=== PATIENT | female | born 1940 | race Caucasian/White ===

== ENCOUNTER 2016-11-19 01:51 | Inpatient (IN) | payer MEDICARE, OTHER ==
[2016-11-19] MEDS ORDERED: Fentanyl 100 MCG/2 ML VIAL ONE (02:03)
[2016-11-19 02:52] LABS: #Basophils 0.1 thou/uL (0.0-0.2); #Eosinphils 0.1 thou/uL (0.0-0.7); #Lymphocytes 2.4 thou/uL (1.20-3.40); #Monocytes 1.1 thou/uL (0.11-0.59); #Neutrophils 8.6 thou/uL (1.40-6.50); %Basophils 1.1 % (0.0-1.0); %Eosinophils 0.8 % (0.0-10.0); %Lymphocytes 19.5 % (21.0-51.0); %Monocytes 9.1 % (0.0-10.0); Hematocrit 37.2 % (36.0-47.0); Mean Platelet Volume 10.1 fL (7.4-10.4); Red Blood Cell (RBC) Count 4.07 mill/uL (4.20-5.40); White Blood Cell (WBC) Count 12.3 thou/uL (4.8-10.8)
[2016-11-19 03:06] LABS: ALT (SGPT) 25 U/L (0-55); AST (SGOT) 34 U/L (5-34); Alkaline Phosphatase 115 U/L (40-150); Anion Gap 13 mmol/L (10-20); BUN (Urea Nitrogen) 13 mg/dL (9.8-20.1); Bilirubin, Total 0.6 mg/dL (0.2-1.2); Calc. Creatinine Clearance 0 mL/min (70-130); Calcium 9.1 mg/dL (7.8-10.44); Carbon Dioxide 26 mmol/L (23-31); Chloride 107 mmol/L (98-107); Estimated GFR-MDRD 70; Globulin 3.2 g/dL (2.4-3.5); Protein, Total 6.9 g/dL (5.8-8.1)
[2016-11-19] MEDS ORDERED: Adacel (T-DAP) 0.5 ML VIAL ONE (03:22)
[2016-11-19] MEDS ORDERED: Lidocaine Viscous Sol 2% 15 ml UD Cup ONE (03:47)
[2016-11-19 03:50] LABS: Bilirubin Negative (Negative); Blood, Urine Negative (Negative); Glucose, Urine (Dipstick) Negative (Negative); Ketone, Urine Negative (Negative); Nitrite Negative (Negative); Protein, Urine (Dipstick) Negative (Neg-Trace); Urobilinogen 0.2 mg/dL (0.2-1.0)
[2016-11-19 03:51] LABS: Bacteria/HPF None Seen HPF (None Seen); RBC/HPF None Seen HPF (0-3); Squamous Epithelial 0-3 HPF (0-3); WBC/HPF None Seen HPF (0-3)
[2016-11-19] MEDS ORDERED: Morphine Sulfate 2 MG/ML SYRINGE SLOW IVP PRN ×2 (04:48→10:09)
--- NOTE | 2016-11-19 05:09 | ERRECORD ---
[facility] (02:04 [facility]) MERGE: Ambulance ThuNov 19, 2016 01:45. HPI FALL (02:04 MPUR) CHIEF COMPLAINT: Patient presents for evaluation of fall, from standing. HISTORIAN: History provided by patient, 76 y.o. female who lost her balance trying to grab something that was falling, landing on her rt hip. SHe had immediate pain in the left groin region with decreased ability to move the left hip due to the groin pain. LOCATION: Symptoms are localized, most severe to left pelvis lateral to the left of the symphysis pubis., Radiation to the groin. QUALITY: Pain is sharp in nature, described as shooting. TIME COURSE: Sudden onset of symptoms, gradually worsening over the evening. SEVERITY: Maximum severity of symptoms moderate, Currently symptoms are severe. EXACERBATED BY: Patient's condition exacerbated by movement. RELIEVED BY: Patient's condition relieved by nothing, Patient's condition relieved by nothing because patient has not tried anything for relief. RISK FACTORS: No risk factors for spinal injury, No risk factors for intracranial bleed. ROS (02:39 MPUR) CONSTITUTIONAL: Historian denies chills, Historian denies fever, Historian denies malaise, Historian denies weakness. EYES: Historian denies eye redness, Historian denies eye discharge. ENT: Historian denies epistaxis, Historian denies otalgia, Historian denies rhinorrhea, Historian denies sore throat. CARDIOVASCULAR: Historian denies chest pain. RESPIRATORY: Historian denies cough, Historian denies shortness of breath. GI: Historian denies abdominal pain, Historian denies diarrhea, Historian denies nausea, Historian denies vomiting. GENITOURINARY FEMALE: Historian denies dysuria, Historian denies frequency, Historian denies hematuria, Historian denies urgency, Historian denies vaginal bleeding, Historian denies vaginal discharge. MUSCULOSKELETAL: See HPI. Historian denies neck pain. SKIN: Historian denies cellulitis, Historian denies rash. NEUROLOGIC: Historian denies dizziness, Historian denies headache. ENDOCRINE: Historian denies polydipsia, Historian denies polyuria. PAST MEDICAL HISTORY (02:08 [facility]) &a-1R&a+25V*p+0X*[id number]*c202B*c15G*c2P*p-0X&a-25V&a+1R Name: Dorene Hamilton : 1940 F76 MedRec: [id number] AcctNum: [id number] Prepared: ThuNov 19, 2016 05:06 by Interface Page 1 of 4 pMD [facility] EMERGENCY RECORD MEDICAL HISTORY: Past medical history includes cardiac history, coronary artery disease, arrhythmia, premature ventricular contractions, Past medical history includes gastrointestinal disease, gastroesophageal reflux disease, Past medical history includes genitourinary history, urinary tract infection, Past medical history includes musculoskeletal disorder, osteoporosis. FEMALE SURGICAL HISTORY: CRACKED STERNUM, Surgical history of appendectomy. PSYCHIATRIC HISTORY: Psychiatric history includes, anxiety. SOCIAL HISTORY: Patient denies alcohol use, Patient denies drug use, Patient is a former tobacco user, smoked cigarettes, Patient quit smoking more than 10 years ago. KNOWN ALLERGIES No Known Drug Allergies poison gulshan extract (Unconfirmed) CURRENT MEDICATIONS Evista: TABLET : Strength - 60 mg : ORAL Patient Dose: 1 tab(s) Oral once a day (in the morning). (: [facility]) Zoloft: TABLET : Strength - 50 mg : ORAL Patient Dose: 1 tab(s) Oral once a day (in the morning). (: [facility]) Aspir-81: TABLET, DELAYED RELEASE (ENTERIC COATED) : Strength - 81 mg : ORAL Patient Dose: 1 tab(s) Oral once a day (in the morning). (: [facility]) meTOPROLOL succinate: TABLET, EXTENDED RELEASE 24 HR : Strength - 25 mg : ORAL Patient Dose: 25 mg Oral 2 times a day. (: [facility]) Vitamin D3: TABLET : Strength - 1,000 unit : ORAL Patient Dose: 1200 units Oral once a day. (: [facility]) Super B Complex: TABLET : ORAL Patient Dose: 1 tab(s) Oral once a day. (: [facility]) calcium carbonate-vitamin D3: CAPSULE : Strength - 600 mg calcium (1,500 mg)-1,000 unit : ORAL Patient Dose: 1800 mg Oral once a day. (: [facility]) magnesium: TABLET : Strength - 250 mg : ORAL Patient Dose: 250 mg Oral once a day. (02: [facility]) vitamin E: CAPSULE : Strength - 100 unit : ORAL Patient Dose: 100 units Oral once a day. (02:04 [facility]) &a-1R&a+25V*p+0X*[id number]*c202B*c15G*c2P*p-0X&a-25V&a+1R Name: Dorene Hamilton : 1940 F76 MedRec: [id number] AcctNum: [id number] Prepared: ThuNov 19, 2016 05:06 by Interface Page 2 of 4 pMD [facility] EMERGENCY RECORD VITAL SIGNS VITAL SIGNS: BP: 173/78, Pulse: 94, Resp: 18, Temp: 99.9 (Oral), Pain: 9 (Constant), O2 sat: 93 on Room Air, Time: 11/19/2016 01:53. (01:53 [facility]) BP: 141/66, Pulse: 80, Resp: 18, O2 sat: 94 on Room Air, Time: 11/19/2016 03:15. (03:15 [facility]) BP: 125/72, Pulse: 77, Resp: 18, O2 sat: 93 on Room Air, Time: 11/19/2016 04:15. (04:15 [facility]) Temp: 98.7 (Oral), Pain: 0, Time: 11/19/2016 04:15. (04:15 [facility]) BP: 133/65, Pulse: 73, Resp: 18, Pain: 0, O2 sat: 93 on Room Air, Time: 11/19/2016 04:30. (04:30 [facility]) PHYSICAL EXAM CONSTITUTIONAL: Vital signs reviewed, Patient alert and oriented to person, place and time. (02:32 MPUR) HEAD: Head exam included findings of head atraumatic, normocephalic. (02:32 MPUR) EYES: Pupils equally round and reactive to light, Extraocular muscles intact, Conjunctiva normal. (02:32 MPUR) ENT: Ear exam normal, external ear normal, no drainage, no bleeding, Nose exam normal, no bleeding from nares. (02:32 MPUR) NECK: Neck exam included findings of normal range of motion, Trachea midline, no jugular venous distention. (02:32 MPUR) RESPIRATORY CHEST: Respiratory exam included findings of no respiratory distress, Breath sounds clear, No wheezing, No rales, No rhonchi. (02:32 MPUR) CARDIOVASCULAR: Cardiovascular exam included findings of heart rate regular rate and rhythm, Heart sounds normal, normal S1, normal S2, no murmurs. Occasional ectopic beat. (02:32 MPUR) ABDOMEN FEMALE: Abdominal exam included findings of abdomen tender, to the suprapubic region, moderate intensity, Bowel sounds normal, Liver normal, Spleen normal, Distension present, Mass palpated. (02:35 MPUR) SKIN: Skin exam included findings of skin warm, dry. Abrasion rt elbow. (02:32 MPUR) RADIOLOGYINTERPRETATION (03:45 MPUR) LOWER EXTREMITIES: Films of the pelvis show, Other findings: displaced fx of the symphysis pubis, Hip films negative, on the left, no fracture, CT pf pelvis confirms distortion of the symphysis pubis. MEDICATION ADMINISTRATION SUMMARY Drug Name: Adacel(Tdap Adolesn/Adult)(PF), Dose Ordered: 0.5 mL, Route: Intramuscular, Status: Given, Time: 03:40 11/19/2016, Drug Name: fentaNYL (PF) injection, Dose Ordered: 50 mcg, Route: IV Push, Status: Given, Time: 02:15 11/19/2016, Detailed record available in Medication Service section. &a-1R&a+25V*p+0X*[id number]*c202B*c15G*c2P*p-0X&a-25V&a+1R Name: Dorene Hamilton : 1940 F76 MedRec: [id number] AcctNum: [id number] Prepared: ThuNov 19, 2016 05:06 by Interface Page 3 of 4 pMD [facility] EMERGENCY RECORD DOCTOR NOTES RE-EVALUATION: Routine re-evaluation, after administration of analgesics, The patient's condition has improved, lying flat is almost pain free post meds. (02:48 MPUR) D/W: Discussed this case with Dr. Clinton, the primary care physician, Discussed case, treatment plan. (03:39 MPUR) PATIENT PLAN: The patient will be admitted to the hospital, Initial physician orders were written for patient as discussed with admitting physician. (03:49 MPUR) PROBLEM LIST No recorded problems DIAGNOSIS (03:42 MPUR) FINAL: PRIMARY: Pelvic fracture, ADDITIONAL: Constipation. PRESCRIPTION No recorded prescriptions DISPOSITION PATIENT: Disposition Type: Discharge, Disposition: *Discharge Home. (03:42 MPUR) Disposition Type: Admit, Disposition: [facility]. (03:42 MPUR) Patient left the department. (04:58 [facility]) Fabian: LKLARRY=FELIPE Easton, Kandace MPUR=MD Jaja, Nate &a-1R&a+25V*p+0X*t4255I*c202B*c15G*c2P*p-0X&a-25V&a+1R Name: Dorene Hamilton Eugenio : 1940 F76 MedRec: [id number] AcctNum: [id number] Prepared: ThuNov 19, 2016 05:06 by Interface Page 4 of 4 pMD MTDD
--- NOTE | 2016-11-19 05:15 | PICIS ---
[facility] EMERGENCY RECORD ADMIN (02:04 [facility]) MERGE: Ambulance ThuNov 19, 2016 01:45. TRIAGE (ThuNov 19, 2016 01:55 [facility]) TRIAGE NOTES: FELL FROM STANDING AT 18:00 LAST NIGHT. LANDED ON RIGHT SIDE. ABRASION TO RIGHT ELBOW. C/O SEVERE PAIN TO INNER LEFT THIGH RADIATING TO GROIN. PAIN WITH MOVEMENT. UNABLE TO WALK. (ThuNov 19, 2016 01:55 [facility]) PATIENT: NAME: Dorene Hamilton, AGE: 76, GENDER: female, : Thu1940, TIME OF GREET: ThuNov 19, 2016 01:52, PREFERRED LANGUAGE: [place], ETHNICITY: Not or , ECODE BILLING MAP: [facility], SSN: [id number], Zip Code: [address], PHONE: , , , PERSON ID: [id number], PCP: Jaspreet CARTER C. HENRY. (ThuNov 19, 2016 01:55 [facility]) KG WEIGHT: 49 (est.). (03:54 [facility]) COMPLAINT: FALL. (ThuNov 19, 2016 01:55 [facility]) ADMISSION: URGENCY: 4 Non Urgent, ADMISSION SOURCE: Home, TRANSPORT: CAR, BED: TRIAGE. (ThuNov 19, 2016 01:55 [facility]) ASSESSMENT: Symptoms began 11/18/2016 18:00. (02:08 [facility]) PAIN: Patient complains of pain described as, on a scale 0-10 patient rates pain as 9, Location LEFT INNER THIGH & GROIN, Pain is intermittent, Onset was 11/18/2016 18:00, Notes: PAIN ONLY WITH MOVEMENT. (02:08 [facility]) SIRS SCORING: Heart Rate 55-109 (0), Temp range 96.8-101.1 (0), respiratory rate 12-24 (0), Mental Status altered: no (0). (02:08 [facility]) IMMUNIZATIONS: Flu vaccine up to date, Tetanus immunization up to date, Date of immunization: 11/19/2016. (02:08 [facility]) TRIAGE SCREENING: Patient denies suicidal ideation, Patient denies presence of domestic violence. (02:08 [facility]) TREATMENTS IN PROGRESS: Treatments given Prehospital: NONE. (02:08 [facility]) PROVIDERS: TRIAGE NURSE: Kandace Easton RN. (ThuNov 19, 2016 01:55 [facility]) VITAL SIGNS: BP 173/78, Pulse 94, Resp 18, Temp 99.9, (Oral), Pain 9, (Constant), O2 Sat 93, on Room Air, Time 11/19/2016 01:53. (01:53 [facility]) PREVIOUS VISIT ALLERGIES: No Known Drug Allergies. (ThuNov 19, 2016 01:55 [facility]) No Known Drug Allergies. (02:08 [facility]) KNOWN ALLERGIES No Known Drug Allergies poison gulshan extract (Unconfirmed) CURRENT MEDICATIONS Evista: TABLET : Strength - 60 mg : ORAL &a-1R&a+25V*p+0X*z6182V*c202B*c15G*c2P*p-0X&a-25V&a+1R Name: Dorene Hamilton : 1940 F76 MedRec: [id number] AcctNum: [id number] Prepared: ThuNov 19, 2016 05:12 by Interface Page 1 of 11 pMD [facility] EMERGENCY RECORD Patient Dose: 1 tab(s) Oral once a day (in the morning). (:56 [facility]) Zoloft: TABLET : Strength - 50 mg : ORAL Patient Dose: 1 tab(s) Oral once a day (in the morning). (01:56 [facility]) Aspir-81: TABLET, DELAYED RELEASE (ENTERIC COATED) : Strength - 81 mg : ORAL Patient Dose: 1 tab(s) Oral once a day (in the morning). (:56 [facility]) meTOPROLOL succinate: TABLET, EXTENDED RELEASE 24 HR : Strength - 25 mg : ORAL Patient Dose: 25 mg Oral 2 times a day. (:59 [facility]) Vitamin D3: TABLET : Strength - 1,000 unit : ORAL Patient Dose: 1200 units Oral once a day. (: [facility]) Super B Complex: TABLET : ORAL Patient Dose: 1 tab(s) Oral once a day. (02: [facility]) calcium carbonate-vitamin D3: CAPSULE : Strength - 600 mg calcium (1,500 mg)-1,000 unit : ORAL Patient Dose: 1800 mg Oral once a day. (02:02 [facility]) magnesium: TABLET : Strength - 250 mg : ORAL Patient Dose: 250 mg Oral once a day. (02:03 [facility]) vitamin E: CAPSULE : Strength - 100 unit : ORAL Patient Dose: 100 units Oral once a day. (02:04 [facility]) VITAL SIGNS VITAL SIGNS: BP: 173/78, Pulse: 94, Resp: 18, Temp: 99.9 (Oral), Pain: 9 (Constant), O2 sat: 93 on Room Air, Time: 11/19/2016 01:53. (01:53 [facility]) BP: 141/66, Pulse: 80, Resp: 18, O2 sat: 94 on Room Air, Time: 11/19/2016 03:15. (03:15 [facility]) BP: 125/72, Pulse: 77, Resp: 18, O2 sat: 93 on Room Air, Time: 11/19/2016 04:15. (04:15 [facility]) Temp: 98.7 (Oral), Pain: 0, Time: 11/19/2016 04:15. (04:15 [facility]) BP: 133/65, Pulse: 73, Resp: 18, Pain: 0, O2 sat: 93 on Room Air, Time: 11/19/2016 04:30. (04:30 [facility]) NURSING ASSESSMENT: EXTREMITY LOWER (02:15 [facility]) CONSTITUTIONAL: Complex assessment performed, Patient arrives, via stretcher, via Emergency Medical Services, Unsteady gait, Lift to cart, Inability to ambulate, History obtained from patient, Patient cooperative, Patient alert, Oriented to person, place and time, Skin warm, Skin dry, Skin normal in color, Mucous membranes pink, Mucous membranes moist, Patient is well-groomed, Patient complains of FALL. PAIN: to the left upper leg, Pain radiates, &a-1R&a+25V*p+0X*f0469H*c202B*c15G*c2P*p-0X&a-25V&a+1R Name: Dorene Hamilton : 1940 F76 MedRec: [id number] AcctNum: [id number] Prepared: ThuNov 19, 2016 05:12 by Interface Page 2 of 11 pMD [facility] EMERGENCY RECORD UP TO LEFT GROIN, Onset of pain 11/18/2016 18:00, constant, on a scale 0-10 patient rates pain as 9, PT REPORTS NO PAIN AT REST. SEVERE PAIN WITH EVEN THE SMALLEST MOVEMENT, Pain exacerbated by, MOVEMENT. LEFT LOWER EXTREMITY: Left lower extremity assessment findings include capillary refill less than 2 seconds, Skin color normal, Skin temperature warm, Distal sensation intact, Muscle tone normal, no edema present, posterior tibia pulse is +3. RIGHT LOWER EXTREMITY: Right lower extremity assessment findings include capillary refill less than 2 seconds, Skin color normal, Skin temperature warm, Distal sensation intact, Muscle tone normal, posterior tibia pulse is +3, dorsalis pedis pulse is +3. SAFETY: Side rails up, Cart/Stretcher in lowest position, Family at bedside, Call light within reach, Hospital ID band on. NURSING ASSESSMENT: FALL RISK (04:00 [facility]) FALL RISK: Fall risk assessment findings include: History of falls (5), Total score 5. NURSING ASSESSMENT: SKIN (02:15 [facility]) SKIN: Skin assessment findings include skin warm, Skin dry, Skin normal in color, Inspection findings include abrasion, to RIGHT ELBOW, SKIN TEAR, Inspection findings include: No pressure ulcer to the shoulder, Inspection findings include no pressure ulcer to the elbow, Inspection findings include no pressure ulcers to the hip, Inspection findings include no pressure ulcer to the sacrum, Inspection findings include no pressure ulcer to the heel, Inspection findings include no pressure ulcer, Inspection findings include no pressure ulcer. NURSING PROCEDURE: ADMISSION (04:40 [facility]) ADMISSION: Patient admitted to a medical-surgical unit, room number 147, Report called toCHUCHO RN, Provided opportunity to answer questions, Admission orders received and completed, Bed assigned at 11/19/2016 04:00, Report called at 11/19/2016 04:35, Patient Admited at. 11/19/2016 04:40, Acuity level urgent, Transported via cart/stretcher, Accompanied by registered nurse, Transported with disposable blood pressure cuff, Transported with saline lock, Summary of Care printed. BELONGINGS: Belongings and valuables with patient upon arrival to the Emergency Department include:, Belongings and valuables with patient at time of admission include:, Belongings remain with patient, Valuables remain with patient. NURSING PROCEDURE: BEDSIDE SIRS TESTING (04:16 [facility]) SCORES: Heart Rate 55-109 (0), Temp range 96.8-101.1 (0), respiratory rate 12-24 (0), Latest WBC 3-14.9 (0), Mental Status altered: no (0), Infection or Suspected Infection: No. NURSING PROCEDURE: COMMUNICATIONS (03:30 [facility]) &a-1R&a+25V*p+0X*v4640P*c202B*c15G*c2P*p-0X&a-25V&a+1R Name: Dorene Hamilton : 1940 F76 MedRec: [id number] AcctNum: [id number] Prepared: ThuNov 19, 2016 05:12 by Interface Page 3 of 11 pMD [facility] EMERGENCY RECORD COMMUNICATIONS: Physician, contacted/paged at Dr. Carter, 0330, home, Reason for notification admission of patient, ERMD requested to speak with patient's PCP regarding possible admission. PCP contacted on first attempt. NURSING PROCEDURE: IV (02:10 [facility]) PATIENT IDENITIFIER: Patient actively involved in identification process, Patient's identity verified by patient stating name, Patient's identity verified by patient stating date. IV SITE 1: IV therapy indicated for medication administration, IV established, to the left forearm, using a 20 gauge catheter, in one attempt, IV site prepped with chloraprep, Saline lock established, Flushed with normal saline (mls): 10, Labs drawn at time of placement, labeled in the presence of the patient and sent to lab. FOLLOW-UP SITE 1: After procedure, sterile transparent dressing applied. SAFETY: Side rails up, Cart/Stretcher in lowest position, Family at bedside, Call light within reach, Hospital ID band on. NURSING PROCEDURE: NURSE NOTES (03:23 [facility]) NURSES NOTES: Notes: ERMD in with patient and family. NURSING PROCEDURE: TRANSPORT TO TESTS PATIENT IDENTIFIER: Patient actively involved in identification process, Patient's identity verified by patient stating name, Patient's identity verified by patient stating date. (02:53 [facility]) TRANSPORT TO TESTS: Transport indicated to facilitate diagnosis, Patient transported to x-ray, via cart, Accompanied by x-ray geotechnician. (02:17 [facility]) Patient transported to CT scan, via cart, Accompanied by x-ray geotechnician. (02:53 [facility]) FOLLOW-UP: After procedure, patient returned to emergency department. (02:40 [facility]) SAFETY: Side rails up, Cart/Stretcher in lowest position, Family at bedside, Call light within reach, Hospital ID band on. (02:53 [facility]) NURSING PROCEDURE: URINE COLLECTION (03:35 [facility]) URINE COLLECTION FEMALE: Simple johnson inserted, using a 16 fr pre-connected catheter, in one attempt, output amount (mL) 250, urine yellow in color, and clear, Johnson has been anchored to leg and labeled with date and time, Specimen labeled in the presence of the patient and sent to lab. NOTES: Patient tolerated procedure well. NURSING PROCEDURE: WOUND CARE (04:00 [facility]) PATIENT IDENTIFIER: Patient actively involved in identification process, Patient's identity verified by patient stating name, Patient's identity verified by patient stating date, Patient's &a-1R&a+25V*p+0X*r2579M*c202B*c15G*c2P*p-0X&a-25V&a+1R Name: Dorene Hamilton : 1940 F76 MedRec: [id number] AcctNum: [id number] Prepared: ThuNov 19, 2016 05:12 by Interface Page 4 of 11 D [facility] EMERGENCY RECORD identity verified by hospital ID axel, Patient's identity verified by family member. WOUND CARE: Wound care indicated for wound debridement and cleansing, Wound care indicated for preparing wound for repair, Wound care indicated to promote healing, Wound site: RIGHT ELBOW, Cause of wound: FALL, Wound cleansed with normal saline, by FELIPE GEORGE, Wound repaired with steri-strips, by FELIPE GEORGE, using 1 pack of steri-strips. FOLLOW-UP: After procedure, simple dressing applied, TEGADERM WITH PAD, After procedure, capillary refill less than 2 seconds, After procedure, distal circulation intact, After procedure, distal motor intact, After procedure, distal sensation intact, After procedure, distal pulses present. NOTES: Patient tolerated procedure well. ORDER DETAILS Order Name: CBC with Differential, Status: Active, Time: 02:44 11/19/2016, User: BRITT, - Ordered for: MD Wilkinson Marcus, - Entered by: MD Wilkinson Marcus - [facility] Nov 19, 2016 02:44, - Quantity: 1, Order Name: Comprehensive Metabolic Panel, Status: Active, Time: 02:44 11/19/2016, User: BRITT, - Ordered for: MD Wilkinson Marcus, - Entered by: MD Wilkinson Marcus - [facility] Nov 19, 2016 02:44, - Quantity: 1, Order Name: CT Abdomen Pelvis WO Con, Status: Active, Time: 02:45 11/19/2016, User: BRITT, - Ordered for: MD Wilkinson Marcus, - Entered by: MD Wilkinson Marcus - [facility] Nov 19, 2016 02:45, - Quantity: 1, Order Name: SALINE LOCK, Status: Done, Time: 02:22 11/19/2016, User: VALENTINE, - Ordered for: MD Wilkinson Marcus, - Entered by: FELIPE Mcfarlane, Cristel - [facility] Nov 19, 2016 02:22, - Quantity: 1, Order Name: Urinalysis with Microscopic, Status: Active, Time: 02:44 11/19/2016, User: BRITT, - Ordered for: MD Wilkinson Marcus, - Entered by: MD Wilkinson Marcus - [facility] Nov 19, 2016 02:44, - Quantity: 1, Order Name: XR Hip Lt 2-3 View STANDARD, Status: Active, Time: 02:00 11/19/2016, User: TORSTEN, - Ordered for: MD Wilkinson Marcus, - Entered by: FELIPE Easton, Kandace - [facility] Nov 19, 2016 02:00, - Quantity: 1, Order Name: XR Pelvis AP STANDARD, Status: Active, Time: 01:57 11/19/2016, User: TORSTEN, - Ordered for: MD Wilkinson Marcus, &a-1R&a+25V*p+0X*n8568A*c202B*c15G*c2P*p-0X&a-25V&a+1R Name: Dorene Hamilton : 1940 F76 MedRec: [id number] AcctNum: [id number] Prepared: ThuNov 19, 2016 05:12 by Interface Page 5 of 11 pMD [facility] EMERGENCY RECORD - Entered by: FELIPE Easton Lacey - ThuNov 19, 2016 01:57, - Quantity: 1. MEDICATION ADMINISTRATION SUMMARY Drug Name: Adacel(Tdap Adolesn/Adult)(PF), Dose Ordered: 0.5 mL, Route: Intramuscular, Status: Given, Time: 03:40 11/19/2016, Drug Name: fentaNYL (PF) injection, Dose Ordered: 50 mcg, Route: IV Push, Status: Given, Time: 02:15 11/19/2016, Detailed record available in Medication Service section. MEDICATION SERVICE Adacel(Tdap Adolesn/Adult)(PF): Order: Adacel(Tdap Adolesn/Adult)(PF) (diphth,pertuss(acell),tet vac/preservative free) - Dose: 0.5 mL : Intramuscular Schedule: Now Ordered by: Nate Wilkinson MD Entered by: Nate Wilkinson MD ThuNov 19, 2016 03:11 Documented as given by: Kandace Easton RN ThuNov 19, 2016 03:40 Patient, Medication, Dose, Route and Time verified prior to administration. IM immunization, Amount given: 0.5mL, Medication administered to right deltoid, novelty twister tender: Adacel, lot number: [id number], expiration: 10/02/2018, Patient appears Awake and alert- acceptable, Correct patient, time, route, dose and medication confirmed prior to administration, Patient advised of actions and side-effects prior to administration, Allergies confirmed and medications reviewed prior to administration. fentaNYL (PF) injection: Order: fentaNYL (PF) injection (fentanyl citrate/preservative free) - Dose: 50 mcg : IV Push Schedule: Now Ordered by: Nate Wilkinson MD Entered by: Nate Wilkinson MD ThuNov 19, 2016 02:19 , Acknowledged by: Cristel Mcfarlane RN ThuNov 19, 2016 02:20 Documented as given by: Cristel Mcfarlane RN ThuNov 19, 2016 02:15 Patient, Medication, Dose, Route and Time verified prior to administration. Amount given: 50 MCG, IV SITE #1 into left forearm, IV SITE #1 IVP, initial medication, Slowly, Catheter placement confirmed via flush prior to administration, IV site without signs or symptoms of infiltration during medication administration, No swelling during administration, No drainage during administration, IV flushed after administration, Correct patient, time, route, dose and medication confirmed prior to administration, Patient advised of actions and side-effects prior to administration, Allergies confirmed and medications reviewed prior to administration, Patient in position of comfort, Side rails up, Cart in lowest position, Family at bedside. HPI FALL (02:04 [facility]) &a-1R&a+25V*p+0X*m6844M*c202B*c15G*c2P*p-0X&a-25V&a+1R Name: Dorene Hamilton : 1940 F76 MedRec: [id number] AcctNum: [id number] Prepared: ThuNov 19, 2016 05:12 by Interface Page 6 of 11 pMD [facility] EMERGENCY RECORD CHIEF COMPLAINT: Patient presents for evaluation of fall, from standing. HISTORIAN: History provided by patient, 76 y.o. female who lost her balance trying to grab something that was falling, landing on her rt hip. SHe had immediate pain in the left groin region with decreased ability to move the left hip due to the groin pain. LOCATION: Symptoms are localized, most severe to left pelvis lateral to the left of the symphysis pubis., Radiation to the groin. QUALITY: Pain is sharp in nature, described as shooting. TIME COURSE: Sudden onset of symptoms, gradually worsening over the evening. SEVERITY: Maximum severity of symptoms moderate, Currently symptoms are severe. EXACERBATED BY: Patient's condition exacerbated by movement. RELIEVED BY: Patient's condition relieved by nothing, Patient's condition relieved by nothing because patient has not tried anything for relief. RISK FACTORS: No risk factors for spinal injury, No risk factors for intracranial bleed. ROS (02:39 [facility]) CONSTITUTIONAL: Historian denies chills, Historian denies fever, Historian denies malaise, Historian denies weakness. EYES: Historian denies eye redness, Historian denies eye discharge. ENT: Historian denies epistaxis, Historian denies otalgia, Historian denies rhinorrhea, Historian denies sore throat. CARDIOVASCULAR: Historian denies chest pain. RESPIRATORY: Historian denies cough, Historian denies shortness of breath. GI: Historian denies abdominal pain, Historian denies diarrhea, Historian denies nausea, Historian denies vomiting. GENITOURINARY FEMALE: Historian denies dysuria, Historian denies frequency, Historian denies hematuria, Historian denies urgency, Historian denies vaginal bleeding, Historian denies vaginal discharge. MUSCULOSKELETAL: See HPI. Historian denies neck pain. SKIN: Historian denies cellulitis, Historian denies rash. NEUROLOGIC: Historian denies dizziness, Historian denies headache. ENDOCRINE: Historian denies polydipsia, Historian denies polyuria. PAST MEDICAL HISTORY (02:08 [facility]) MEDICAL HISTORY: Past medical history includes cardiac history, coronary artery disease, arrhythmia, premature ventricular contractions, Past medical history includes gastrointestinal disease, gastroesophageal reflux disease, Past medical history includes &a-1R&a+25V*p+0X*f1416F*c202B*c15G*c2P*p-0X&a-25V&a+1R Name: Dorene Hamilton : 1940 F76 MedRec: [id number] AcctNum: [id number] Prepared: ThuNov 19, 2016 05:12 by Interface Page 7 of 11 pMD [facility] EMERGENCY RECORD genitourinary history, urinary tract infection, Past medical history includes musculoskeletal disorder, osteoporosis. FEMALE SURGICAL HISTORY: CRACKED STERNUM, Surgical history of appendectomy. PSYCHIATRIC HISTORY: Psychiatric history includes, anxiety. SOCIAL HISTORY: Patient denies alcohol use, Patient denies drug use, Patient is a former tobacco user, smoked cigarettes, Patient quit smoking more than 10 years ago. PHYSICAL EXAM CONSTITUTIONAL: Vital signs reviewed, Patient alert and oriented to person, place and time. (02:32 [facility]) HEAD: Head exam included findings of head atraumatic, normocephalic. (02:32 [facility]) EYES: Pupils equally round and reactive to light, Extraocular muscles intact, Conjunctiva normal. (02:32 [facility]) ENT: Ear exam normal, external ear normal, no drainage, no bleeding, Nose exam normal, no bleeding from nares. (02:32 [facility]) NECK: Neck exam included findings of normal range of motion, Trachea midline, no jugular venous distention. (02:32 [facility]) RESPIRATORY CHEST: Respiratory exam included findings of no respiratory distress, Breath sounds clear, No wheezing, No rales, No rhonchi. (02:32 [facility]) CARDIOVASCULAR: Cardiovascular exam included findings of heart rate regular rate and rhythm, Heart sounds normal, normal S1, normal S2, no murmurs. Occasional ectopic beat. (02:32 [facility]) ABDOMEN FEMALE: Abdominal exam included findings of abdomen tender, to the suprapubic region, moderate intensity, Bowel sounds normal, Liver normal, Spleen normal, Distension present, Mass palpated. (02:35 [facility]) SKIN: Skin exam included findings of skin warm, dry. Abrasion rt elbow. (02:32 [facility]) EVENTS TRANSFER: Triage to Emergency Triage. (01:55 [facility]) Emergency Triage to Emergency Room -03. (02:04 LK) Removed from Emergency Emergency Room -03. (04:58 [facility]) RADIOLOGYINTERPRETATION (03:45 [facility]) LOWER EXTREMITIES: Films of the pelvis show, Other findings: displaced fx of the symphysis pubis, Hip films negative, on the left, no fracture, CT pf pelvis confirms distortion of the symphysis pubis. DOCTOR NOTES RE-EVALUATION: Routine re-evaluation, after administration of analgesics, The patient's condition has improved, lying flat is almost pain free post meds. (02:48 [facility]) &a-1R&a+25V*p+0X*u3962H*c202B*c15G*c2P*p-0X&a-25V&a+1R Name: Dorene Hamilton : 1940 F76 MedRec: [id number] AcctNum: [id number] Prepared: ThuNov 19, 2016 05:12 by Interface Page 8 of 11 pMD [facility] EMERGENCY RECORD D/W: Discussed this case with Dr. Carter, the primary care physician, Discussed case, treatment plan. (03:39 [facility]) PATIENT PLAN: The patient will be admitted to the hospital, Initial physician orders were written for patient as discussed with admitting physician. (03:49 [facility]) PROBLEM LIST No recorded problems DIAGNOSIS (03:42 [facility]) FINAL: PRIMARY: Pelvic fracture, ADDITIONAL: Constipation. DISPOSITION PATIENT: Disposition Type: Discharge, Disposition: *Discharge Home. (03:42 [facility]) Disposition Type: Admit, Disposition: [facility]. (03:42 [facility]) Patient left the department. (04:58 [facility]) PRESCRIPTION No recorded prescriptions IMAGING RADIOLOGY REPORT: Image captured from scanner. (04:00 [facility]) Page 2 added. Image captured from scanner. (04:00 [facility]) TETANUS CONSENT: Image captured from scanner. (04:05 [facility]) ADMISSION ORDERS: Image captured from scanner. (04:38 [facility]) *SUPPLY CHARGE SHEET: Image captured from scanner. (04:38 [facility]) RESULTS LABORATORY: CBC with Differential Collection DT: ThuNov 19, 2016 02:50, *White Blood Cell (WBC) Count 12.3 - H thou/uL, Range (4.8-10.8), *Red Blood Cell (RBC) Count 4.07 - L mill/uL, Range (4.20-5.40), Hemoglobin 12.4 g/dL, Range (12.0-16.0), Hematocrit 37.2 %, Range (36.0-47.0), Mean Corpuscular Volume 91.3 fl, Range (81.0-99.0), Mean Corpuscular Hemoglobin 30.5 pg, Range (27.0-31.0), Mean Corpuscular HGB CONC 33.4 g/dL, Range (32.0-36.0), RBC Distribution Width 12.8 %, Range (11.5-14.5), Platelet Count 141 thou/uL, Range (130-400), Mean Platelet Volume 10.1 fL, Range (7.4-10.4), %Neutrophils 69.6 %, Range (42.0-75.0), *%Lymphocytes 19.5 - L %, Range (21.0-51.0), %Monocytes 9.1 %, Range (0.0-10.0), %Eosinophils 0.8 %, Range (0.0-10.0), *%Basophils 1.1 - H %, Range (0.0-1.0), *#Neutrophils 8.6 - H thou/uL, Range (1.40-6.50), &a-1R&a+25V*p+0X*n3337X*c202B*c15G*c2P*p-0X&a-25V&a+1R Name: Dorene Hamilton : 1940 F76 MedRec: [id number] AcctNum: [id number] Prepared: ThuNov 19, 2016 05:12 by Interface Page 9 of 11 pMD [facility] EMERGENCY RECORD #Lymphocytes 2.4 thou/uL, Range (1.20-3.40), *#Monocytes 1.1 - H thou/uL, Range (0.11-0.59), #Eosinphils 0.1 thou/uL, Range (0.0-0.7), #Basophils 0.1 thou/uL, Range (0.0-0.2). (02:55 [facility]) Comprehensive Metabolic Panel Collection DT: ThuNov 19, 2016 02:50, Sodium 142 mmol/L, Range (136-145), Potassium 3.7 mmol/L, Range (3.5-5.1), Chloride 107 mmol/L, Range (98-107), Carbon Dioxide 26 mmol/L, Range (23-31), Anion Gap 13 mmol/L, Range (10-20), BUN (Urea Nitrogen) 13 mg/dL, Range (9.8-20.1), Creatinine 0.80 mg/dL, Range (0.6-1.1), Estimated GFR-MDRD 70 , Reference Range for Estimated GFR: Greater than 90, mL/min/1.73 m2 NOTE: The MDRD equation has not been validated for use, with the elderly (over 70 years of age), women, patients with, serious comorbid condition or persons with extremes of body size, muscle, mass, or nutritional status. , Glucose 105 mg/dL, Range (83-110), Calcium 9.1 mg/dL, Range (7.8-10.44), Bilirubin, Total 0.6 mg/dL, Range (0.2-1.2), Protein, Total 6.9 g/dL, Range (5.8-8.1), NOTE: Plasma values are generally 0.3 to 0.5 g/dL higher than serum values, due to the presence of fibrinogen. , Albumin 3.7 g/dL, Range (3.4-4.8), Globulin 3.2 g/dL, Range (2.4-3.5), Alb/Glob Ratio 1.2 g/dL, Range (1.2-2.2), Alkaline Phosphatase 115 U/L, Range (40-150), AST (SGOT) 34 U/L, Range (5-34), ALT (SGPT) 25 U/L, Range (0-55). (03:07 MPUR) CBC with Differential Collection DT: ThuNov 19, 2016 02:50, *White Blood Cell (WBC) Count 12.3 - H thou/uL, Range (4.8-10.8), *Red Blood Cell (RBC) Count 4.07 - L mill/uL, Range (4.20-5.40), Hemoglobin 12.4 g/dL, Range (12.0-16.0), Hematocrit 37.2 %, Range (36.0-47.0), Mean Corpuscular Volume 91.3 fl, Range (81.0-99.0), Mean Corpuscular Hemoglobin 30.5 pg, Range (27.0-31.0), Mean Corpuscular HGB CONC 33.4 g/dL, Range (32.0-36.0), RBC Distribution Width 12.8 %, Range (11.5-14.5), Platelet Count 141 thou/uL, Range (130-400), Mean Platelet Volume 10.1 fL, Range (7.4-10.4), %Neutrophils 69.6 %, Range (42.0-75.0), *%Lymphocytes 19.5 - L %, Range (21.0-51.0), %Monocytes 9.1 %, Range (0.0-10.0), %Eosinophils 0.8 %, Range (0.0-10.0), *%Basophils 1.1 - H %, Range (0.0-1.0), *#Neutrophils 8.6 - H thou/uL, Range (1.40-6.50), &a-1R&a+25V*p+0X*[id number]*c202B*c15G*c2P*p-0X&a-25V&a+1R Name: Dorene Hamilton : 1940 F76 MedRec: [id number] AcctNum: [id number] Prepared: ThuNov 19, 2016 05:12 by Interface Page 10 of 11 pMD [facility] EMERGENCY RECORD #Lymphocytes 2.4 thou/uL, Range (1.20-3.40), *#Monocytes 1.1 - H thou/uL, Range (0.11-0.59), #Eosinphils 0.1 thou/uL, Range (0.0-0.7), #Basophils 0.1 thou/uL, Range (0.0-0.2). (03:07 UR) Urinalysis with Microscopic Collection DT: ThuNov 19, 2016 03:47, Color Yellow , Range (Yellow), Clarity Clear , Range (Clear), Specific Lawrence, Urine 1.020 , Range (1.005-1.030), pH, Urine 8.5 , Range (5.0-9.0), Leukocyte Negative , Range (Negative), Nitrite Negative , Range (Negative), Protein, Urine (Dipstick) Negative mg/dL, Range (Neg-Trace), Glucose, Urine (Dipstick) Negative mg/dL, Range (Negative), Ketone, Urine Negative mg/dL, Range (Negative), Urobilinogen 0.2 mg/dL, Range (0.2-1.0), Bilirubin Negative , Range (Negative), Blood, Urine Negative , Range (Negative), RBC/HPF None Seen HPF, Range (0-3), WBC/HPF None Seen HPF, Range (0-3), Squamous Epithelial 0-3 HPF, Range (0-3), Bacteria/HPF None Seen HPF, Range (None Seen). (04:42 [facility]) Fabian: ALEXX=FELIPE Hernandez, Rahel GRIJALVA=FELIPE Mcfarlane, Cristel [facility]=FELIPE Easton, Kandace MPUR=MD Jaja, Nate &a-1R&a+25V*p+0X*[id number]*c202B*c15G*c2P*p-0X&a-25V&a+1R Name: Dorene Hamilton Eugenio : 1940 F76 MedRec: [id number] AcctNum: [id number] Prepared: ThuNov 19, 2016 05:12 by Interface Page 11 of 11 pMD MTDD
[2016-11-19 05:27] VITALS: BMI 17.6
--- NOTE | 2016-11-19 08:54 | CT ---
PRELIMINARY REPORT/[facility]/EMERGENCY AFTER HOURS PROCEDURE: \H\EXAM: \N\CT Pelvis Without Intravenous Contrast. \H\ CLINICAL HISTORY: \N\76 years old, female; Injury or trauma; Fall; Initial encounter; Sprain or strain; Left; Groin; I njury date: 11/18/16; Injury details: 76 y. O. Female who lost her balance trying to grab something that was falling, landing on her rt hip. She had immediate pain in the left groin region with decrea sed ability to move the left hip due to the groin pain. Unable to walk. ; Patient HX: Past medical h istory includes musculoskeletal disorder, osteoporosis; \H\ TECHNIQUE: \N\Axial computed tomography images of the pelvis without intravenous contrast. Coronal and sagittal reformatted images were created and reviewed. \H\ COMPARISON: \N\No relevant prior studies available. \H\FINDINGS: \N\Bones: Acute-appearing, minimally displaced fracture of the left anterior pubis. Old, healed frac tures of the anterior aspects of the right superior and inferior pubic rami. Lower lumbar spine dege nerative changes. Joints: Degenerative changes of the hips and sacroiliac joints. No dislocation. Soft tissues: Normal. Vasculature: Phleboliths within the pelvis. Stomach and bowel: Colonic diverticulosis. No obstruction. No mucosal thickening. Intraperitoneal space: Small amount of pelvic free fluid. No free air. Bladder: Normal. No stones. Other findings: Simple right renal cyst. \H\ IMPRESSION: \N\1. Acute-appearing, minimally displaced fracture of the left anterior pubis. 2. Incidental/non-acute findings are described above. \H\ \N\Thank you for allowing us to participate in the care of your patient. Dictated and Authenticated by: Peter Alejo MD 11/19/2016 3:54 AM Central Time ([place] \T\ Emilie) FINAL REPORT EMERGENT AFTER HOURS CT PELVIS IMPRESSION: I agree with the preliminary interpretation given by [facility]. POS: OFF
--- NOTE | 2016-11-19 08:56 | RAD ---
LEFT HIP RADIOGRAPHS TWO VIEWS: Date: 11-19-16 Provided Clinical History: Injury. Comparison: 12-27-15 FINDINGS: No evidence for fracture or other acute osseous abnormality. If there is persistent clinical concer n, conservative management and follow up imaging are advised. IMPRESSION: As above. POS: OFF
--- NOTE | 2016-11-19 09:02 | RAD ---
SINGLE VIEW OF THE PELVIS: Comparison: CT pelvis 11-19-16 History: Fall with right hip pain. FINDINGS: Single view of the pelvis shows no evidence of acute fracture or dislocation. The subtle nondisplac ed fracture of the left superior pubic ramus is not appreciated on this examination. No degenerativ e change is seen in either hip. There is bony hypertrophy in the right parasymphyseal region in the pelvis secondary to remote healed fracture in this location. IMPRESSION: No fractures visualized on this exam. POS: MED
[2016-11-19] MEDS ORDERED: Ondansetron ODT 4 MG TAB PO PRN (10:04)
[2016-11-19] MEDS ORDERED: Calcium Carbonate 500 MG ChewTAB PO PRN (10:04)
[2016-11-19] MEDS ORDERED: Milk Of Magnesia 30 ML UDCUP PO PRN (10:04)
[2016-11-19] MEDS ORDERED: Guaifenesin DM 100-10/5 ML UDCUP PO PRN (10:04)
[2016-11-19] MEDS ORDERED: Bisacodyl 5 MG TAB PO PRN (10:04)
[2016-11-19] MEDS ORDERED: Acetaminophen 325 MG TAB PO PRN (10:04)
[2016-11-19] MEDS ORDERED: Polyethylene Glycol 3350 17 GM Packet PO SCH (10:30)
[2016-11-19] MEDS: Polyethylene Glycol 3350 17 GM Packet PO SCH (10:37)
--- NOTE | 2016-11-19 11:02 | CT ---
PRELIMINARY REPORT/[facility]/EMERGENCY AFTER HOURS PROCEDURE: EXAM: CT Pelvis Without Intravenous Contrast. CLINICAL HISTORY: 76 years old, female; Injury or trauma; Fall; Initial encounter; Sprain or strain; Left; Groin; Injury date: 11/18/16; Injury details: 76 y. O. Female who lost her balance trying to grab something that was falling, landing on her rt hip. She had immediate pain in the left groin region with decreased ability to move the left hip due to the groin pain. Unable to walk. ; Patient HX: Past medical history includes musculoskeletal disorder, osteoporosis; TECHNIQUE: Axial computed tomography images of the pelvis without intravenous contrast. Coronal and sagittal reformatted images were created and reviewed. COMPARISON: No relevant prior studies available. FINDINGS: Bones: Acute-appearing, minimally displaced fracture of the left anterior pubis. Old, healed fractures of the anterior aspects of the right superior and inferior pubic rami. Lower lumbar spine degenerative changes. Joints: Degenerative changes of the hips and sacroiliac joints. No dislocation. Soft tissues: Normal. Vasculature: Phleboliths within the pelvis. Stomach and bowel: Colonic diverticulosis. No obstruction. No mucosal thickening. Intraperitoneal space: Small amount of pelvic free fluid. No free air. Bladder: Normal. No stones. Other findings: Simple right renal cyst. IMPRESSION: 1. Acute-appearing, minimally displaced fracture of the left anterior pubis. 2. Incidental/non-acute findings are described above. Thank you for allowing us to participate in the care of your patient. Dictated and Authenticated by: Peter Alejo MD 11/19/2016 3:54 AM Central Time ([place] \E\T\E\ Em[place]) FINAL REPORT EMERGENT AFTER HOURS CT PELVIS IMPRESSION: I agree with the preliminary interpretation given by [facility].
--- NOTE | 2016-11-20 03:06 | HP ---
DATE OF ADMISSION: 11/19/2016 HISTORY OF PRESENT ILLNESS: Ms. Hamilton is a 76-year-old very pleasant white female who was in her home approximately 6:00 in the afternoon 11/18/2016, when she fell. She had immediate pain. She fe ll on the right hip and had immediate pain in the left groin area. She did not want go to the emerg ency room and eventually that night about 11:00 or 12:00, the pain became much more intense. She wa s taken to the emergency room. She was seen by Dr. Nate Wilkinson and found to have an acute appeari ng minimally displaced fracture of the left anterior pubis. It is felt that she had significant avtar n, was given fentanyl for pain and was transferred to [facility] since the [facility] is on drive by and has a 16 patient ER waiting list. PAST MEDICAL HISTORY: Reveals that the patient has, 1. History of hypertension. 2. Gastroesophageal reflux. 3. Allergic dermatitis. 4. Osteoporosis. 5. Macular degeneration. 6. Anxiety. 7. Urinary urgency or frequency. 8. Diverticulitis in 2001. 9. Depression. PAST SURGICAL HISTORY: Reveals the patient had appendectomy in 1955, tonsillectomy in 194, breast biopsy [address] Naranjo in 2001. FAMILY HISTORY: Reveals father at age 24. Mother at age 86 of heart disease, diverticuli tis and colitis diagnosed with heart disease. Patient's paternal grandfather at age 70 with he art disease. The patient paternal grandmother at age 70. The patient's maternal grandfather d ied at age 80 with tuberculosis. The patient has 4 healthy sisters. Patient has 4 children. 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 Has family history of arthritis. The patient's father at plane crash at age 24. SOCIAL HISTORY: Reveals the patient does not smoke, does not drink, does not use any illicit drugs. ALLERGIES: Patient has only an allergy to POISON JOSETTE. CURRENT MEDICATIONS: Reveal the patient is presently on the followin. Metoprolol 25 mg half a pill twice a day. 2. Sertraline 100 mg every morning. 3. Evista 60 mg once daily. 4. Magnesium 250 mg p.r.n. 5. ICAPS capsule 2 daily. 6. Calcium 500 mg 1 daily. 7. Vitamin B complex 1 a day. 8. Vitamin D3 2000 units 2 tablets once a day. 9. Vitamin E 400 units as directed. 10. Aspirin 81 mg chewable daily. 11. Albuterol handheld nebulizer p.r.n. wheezing. 12. Cheratussin half a teaspoon q. 4 hours p.r.n. cough. 13. Probiotic one a day. REVIEW OF SYSTEMS: Review of the patient denies any fever or chills, just only weakness. She has c omplained of left inguinal groin pain. Denies any headaches. Denies any vision or hearing problems or differences. Denies any respiratory problems, although she is recovering from bronchitis and co ugh. Denies any hemoptysis. Denies any heart pain or chest pain, denies any shortness of breath, d yspnea on exertion, claudication. Denies any nausea, vomiting, diarrhea, constipation, bloody or bl ack tarry still. Denies of any genitourinary problems except she does have pain now. She does comp pierre of occasional constipation. She has joint weakness and joint swelling rarely. Denies any sign ificant hair loss. States her appetite is still very poor. Denies any dizziness and states she was not dizzy and then fall because of dizziness. PHYSICAL EXAMINATION: GENERAL: This is a thin, well-developed white female in no apparent distress at this time. HEENT: Normocephalic, nontraumatic cranium. Pupils equally round and reactive. Extraocular moveme nts intact. Nose and throat are slightly dry. NECK: Supple, without nodes or bruits. CHEST: Clear to auscultation. No rales, rhonchi, wheezes or cough was heard. HEART: Reveals a regular rate and rhythm without murmurs, gallops or rubs. No S3 or S4 is noted. ABDOMEN: Soft, nontender, without organomegaly, normal bowel sounds are noted. No rebound or guard ing is noted. No CVA tenderness is noted. GENITOURINARY: Reveals left pubis tenderness in the inguinal area. Patient has all type of shootin g pain whenever she moves. She has no clubbing, cyanosis or edema. Her rash has gone after using L otrisone cream on it. NEUROLOGIC: The patient has no focal deficits. ASSESSMENT: 1. Displaced left anterior pubic symphysis fracture. 2. Hypertension. 3. Palpitations. 4. Osteoporosis. 5. Reflux. 6. Anxiety depressive disorder. PLAN: 1. She can get a consultation from Orthopedics on what else to do for pelvic fracture since it is m inimally displaced. We will start with some physical therapy, occupational therapy and have her slo wly started getting antibiotics since her pain is beginning controlled. 2. Continue to treat the patient constipation with MiraLax daily and milk of magnesia as needed. 3. Continue to follow patient's blood pressure. 4. Continue to follow patient for palpitations. 5. If the patient developed some wheezing then consider handheld nebulizers.
[2016-11-20 07:04] LABS: Anion Gap 12 mmol/L (10-20); BUN (Urea Nitrogen) 11 mg/dL (9.8-20.1); Calc. Creatinine Clearance 56 mL/min (70-130); Calcium 8.4 mg/dL (7.8-10.44); Carbon Dioxide 24 mmol/L (23-31); Chloride 107 mmol/L (98-107); Estimated GFR-MDRD 87
[2016-11-20 07:28] LABS: Band 4 % (5-11); Hematocrit 37.9 % (36.0-47.0); Neutrophil 71 % (42-75); Red Blood Cell (RBC) Count 4.17 mill/uL (4.20-5.40); White Blood Cell (WBC) Count 19.6 thou/uL (4.8-10.8)
[2016-11-20] MEDS: Calcium Carbonate 500 MG TAB PO SCH (08:22)
[2016-11-20] MEDS: Polyethylene Glycol 3350 17 GM Packet PO SCH (08:27)
--- NOTE | 2016-11-20 10:18 | PRG ---
DATE OF SERVICE: 11/20/2016 HISTORY OF PRESENT ILLNESS: Ms. Hamilton is a very pleasant 76-year-old white female that fell at [facility] at approximately 6:00 in the evening. She ended up going to the hospital about 11-12 o'clock jae t evening at night because of intractable pain. She was seen and a CT scan was done which revealed an acute, very minimally displaced fracture of the left anterior pubis. She had significant pain an d was admitted to the hospital for pain management. I have talked with Dr. Henderson who reviewed her x-rays and felt that this was a nondisplaced fractu re that should heal well, but very slowly with lots of pain. He felt that she could be weightbearin g as tolerated and certainly to be walking with a walker and he wanted to repeat imaging at 5-6 week s. SUBJECTIVE: The patient states she feels much better today. She has pain anytime she moves, but sh melva understands that she needs to move and we will order physical therapy, weightbearing as tolerated. OBJECTIVE: Vital signs today reveal blood pressure this morning 119/50, pulse 60-72, respirations 1 8-20, O2 sat 91 to 93% on room air. T-max is 97.1. PHYSICAL EXAMINATION: GENERAL: This is a well-developed, well-nourished, very thin white female in no apparent distress. She is not hurting, who ate a fairly decent breakfast this morning, probably 60-80%. HEENT: Reveals normocephalic, nontraumatic cranium. Pupils are equally round and reactive. Extrao cular movements intact. Nose and throat are slightly dry. NECK: Supple, without masses, nodes or bruits. CHEST: Clear to auscultation. No rales, rhonchi or wheezes are heard. CARDIOVASCULAR: Reveals a regular rate and rhythm without murmurs, gallops or rubs. ABDOMEN: Scaphoid, soft, nontender, without organomegaly, normal bowel sounds are noted. No reboun d or guarding is noted. : Reveals left pubic anterior pubic tenderness in the inguinal area. The patient has shooting ty pe pains when she moves. I did discuss with Dr. Henderson and he recommended weightbearing as tolerated, but this will be a sl ow and painful healing process and he does want x-rays in 5-6 weeks. IMPRESSION: 1. Nondisplaced anterior left pubic symphysis fracture. 2. Hypertension. 3. Palpitations. 4. Osteoporosis. 5. Reflux. 6. Anxiety depressive disorder. PLAN: 1. Physical therapy and occupational therapy with weightbearing as tolerated. 2. Repeat x-rays in 5-6 weeks. 3. Continue to follow for constipation with MiraLax daily. 4. Follow blood pressure closely. 5. Follow up for palpitations. 6. Wheezing seems improved today.
[2016-11-20] MEDS: Acetaminophen/Codeine 30-300mg Tablet PO PRN ×2 (13:13→20:16)
[2016-11-20] MEDS: Sodium Chloride 0.9% 1,000 ML IV SCH (20:15)
[2016-11-21] MEDS: Acetaminophen/Codeine 30-300mg Tablet PO PRN ×2 (03:00→20:13)
[2016-11-21] MEDS: Sodium Chloride 0.9% 1,000 ML IV SCH ×2 (05:49→15:30)
[2016-11-21 06:49] LABS: #Basophils 0.1 thou/uL (0.0-0.2); #Eosinphils 0.2 thou/uL (0.0-0.7); #Lymphocytes 2.6 thou/uL (1.20-3.40); #Monocytes 1.2 thou/uL (0.11-0.59); #Neutrophils 10.3 thou/uL (1.40-6.50); %Basophils 0.9 % (0.0-1.0); %Eosinophils 1.2 % (0.0-10.0); %Lymphocytes 17.9 % (21.0-51.0); %Monocytes 8.2 % (0.0-10.0); Hematocrit 32.9 % (36.0-47.0); Mean Platelet Volume 9.1 fL (7.4-10.4); Red Blood Cell (RBC) Count 3.65 mill/uL (4.20-5.40); White Blood Cell (WBC) Count 14.3 thou/uL (4.8-10.8)
[2016-11-21 07:01] LABS: Anion Gap 10 mmol/L (10-20); BUN (Urea Nitrogen) 14 mg/dL (9.8-20.1); Calc. Creatinine Clearance 54 mL/min (70-130); Calcium 7.8 mg/dL (7.8-10.44); Carbon Dioxide 24 mmol/L (23-31); Chloride 112 mmol/L (98-107); Estimated GFR-MDRD 84
[2016-11-21] MEDS: Calcium Carbonate 500 MG TAB PO SCH (08:45)
[2016-11-21] MEDS: Polyethylene Glycol 3350 17 GM Packet PO SCH (09:00)
--- NOTE | 2016-11-21 10:23 | PRG ---
DATE OF SERVICE: 11/21/2016 HISTORY OF PRESENT ILLNESS: Ms. Hamilton is a very pleasant 76-year-old white female that on Thursday or Thursday was at home and fell. She fell on her right hip and had acute pain in the left pubic are a. She did not go to the hospital immediately, but that night around midnight went to the hospital and was found to have a nondisplaced left anterior pubic symphysis fracture. We talked with Dr. Roberto smith who felt that it was nondisplaced and actually she should do very well without any significant problems except for pain. She needs to be weightbearing as tolerated. SUBJECTIVE: The patient states she feels much better today. She is less confused today. We switch ed her off of the morphine and on over to Tylenol #3. She is doing much better on that. OBJECTIVE: Vital signs are not available. The computers are down at this time. PHYSICAL EXAMINATION: GENERAL: This is a well-developed, well-nourished, very pleasant white female in no apparent distre ss at this time, sitting in a wheelchair pushing herself backwards per PT and OT protocol. HEENT: Reveals normocephalic, nontraumatic cranium. Pupils are equally round and reactive. Extrao cular movements intact. Nose and throat are slightly dry. NECK: Supple, without mass, nodes or bruits. CHEST: Clear to auscultation. No rales, rhonchi or wheezes are heard. CARDIOVASCULAR: Reveals a regular rate and rhythm without murmurs, gallops or rubs. ABDOMEN: Scaphoid, soft, nontender, without organomegaly, normal bowel sounds are noted. No reboun d or guarding is noted. : Deferred. EXTREMITIES: Reveal left suprapubic area tenderness. Otherwise, she is doing very well. IMPRESSION: 1. Nondisplaced left anterior pubic symphysis fracture. 2. Hypertension. 3. Gastroparesis. 4. Gastroesophageal reflux. 5. Osteoporosis. 6. Generalized weakness. 7. Palpitations. PLAN: 1. Continue present medications. 2. Continue fracture precautions. 3. Continue to follow the patient for palpitations and arrhythmia. 4. Continue physical therapy and occupational therapy. 5. Encourage the patient to eat well. 6. We have stopped her morphine and she is on Tylenol #3 which is doing well. 7. Labs are pending this morning.
[2016-11-22] MEDS: Sodium Chloride 0.9% 1,000 ML IV SCH ×3 (00:09→20:17)
[2016-11-22 07:01] LABS: #Basophils 0.1 thou/uL (0.0-0.2); #Eosinphils 0.3 thou/uL (0.0-0.7); #Lymphocytes 2.1 thou/uL (1.20-3.40); #Neutrophils 7.7 thou/uL (1.40-6.50); %Basophils 0.9 % (0.0-1.0); %Eosinophils 2.6 % (0.0-10.0); %Lymphocytes 18.5 % (21.0-51.0); %Monocytes 8.9 % (0.0-10.0); Hematocrit 33.9 % (36.0-47.0); Mean Platelet Volume 8.6 fL (7.4-10.4); Red Blood Cell (RBC) Count 3.74 mill/uL (4.20-5.40); White Blood Cell (WBC) Count 11.1 thou/uL (4.8-10.8)
[2016-11-22 07:14] LABS: Anion Gap 8 mmol/L (10-20); BUN (Urea Nitrogen) 8 mg/dL (9.8-20.1); Calc. Creatinine Clearance 57 mL/min (70-130); Calcium 7.9 mg/dL (7.8-10.44); Carbon Dioxide 24 mmol/L (23-31); Chloride 113 mmol/L (98-107); Estimated GFR-MDRD 89
[2016-11-22] MEDS: Calcium Carbonate 500 MG TAB PO SCH (09:07)
[2016-11-22] MEDS: Polyethylene Glycol 3350 17 GM Packet PO SCH (09:09)
--- NOTE | 2016-11-22 15:42 | PRG ---
DATE OF SERVICE: 11/22/[address] Kendall Clinton. SUBJECTIVE: The patient is sitting up in the chair only to bed. She states she is in no distress at rest, if she does not move. She is asking if she can sit up in the chair, realizes she has been t old she cannot transfer without any assistance and is having vivid dreams at night, but is sleeping well. OBJECTIVE: LUNGS: Clear. CARDIAC: Cardiac examination showed regular rhythm. ABDOMEN: Soft and nontender. ASSESSMENT: 1. Resolving left pubic ramus fracture 2. Resolved delirium, most likely due to pain medication. Vivid dreams are improving also. 3. Stable hypertension, controlled to goal. PLAN: Up in the chair with assistance. Continue to monitor for signs of confusion, only give Tyleno l and codeine as needed for pain.
[2016-11-22] MEDS: Acetaminophen/Codeine 30-300mg Tablet PO PRN (20:17)
[2016-11-23] MEDS: Sodium Chloride 0.9% 1,000 ML IV SCH ×2 (06:11→16:01)
[2016-11-23] MEDS: Calcium Carbonate 500 MG TAB PO SCH (08:24)
[2016-11-23] MEDS: Polyethylene Glycol 3350 17 GM Packet PO SCH (08:24)
--- NOTE | 2016-11-23 11:24 | PRG ---
DATE OF SERVICE: 11/23/2016 SUBJECTIVE: The patient rested well through the night, still having vivid dreams, but not frighteni ng and did sleep well, is not complaining of any pain. He is only minimally confused, asking as wha t time it is, but reoriented easily. OBJECTIVE: VITAL SIGNS: Show blood pressure is 173/87 last night. This morning not available yet temperature 99.2, pulse 78, respirations 18, O2 sats 96%. LUNGS: Clear. CARDIAC EXAMINATION: Shows regular rhythm. ASSESSMENT: Resolving pubic fracture and improving delirium, superimposed on mild dementia, out of bed today and hopefully out in the colon. Continue pain relief as needed.
[2016-11-23] MEDS: Acetaminophen/Codeine 30-300mg Tablet PO PRN (20:49)
[2016-11-24] MEDS: Sodium Chloride 0.9% 1,000 ML IV SCH ×3 (02:55→08:58)
[2016-11-24] MEDS: Calcium Carbonate 500 MG TAB PO SCH (08:55)
[2016-11-24] MEDS: Polyethylene Glycol 3350 17 GM Packet PO SCH (08:56)
--- NOTE | 2016-11-24 20:26 | PRG ---
DATE OF SERVICE: 11/24/2016 HISTORY OF PRESENT ILLNESS: Ms. Hamilton is a very pleasant 76-year-old white female that fell on he r right hip and had resulted in acute pain in the left pubic area. She was found to have a nondispl aced left anterior pubic symphysis fracture. I did discuss the case with Dr. Henderson who felt that is on the place she should do well without any significant problems except for pain. She need to b e weightbearing as tolerated. SUBJECTIVE: The patient states she is feeling much better. She is eating better. She is still str onger and she has no complaints. PHYSICAL EXAMINATION: VITAL SIGNS: Reveal blood pressure this morning was 137/64, pulse 70-84, respirations 16-20, O2 sat 93%-96%, T-max is 98.0. PHYSICAL EXAMINATION: GENERAL: This is a well-developed, well-nourished, very pleasant white female with a left pubic sym physis fracture. HEENT: Reveals normocephalic, nontraumatic cranium. Pupils are equally round and reactive. Extrao cular movements are intact. Nose and throat are slightly dry. NECK: Supple, without masses, nodes or bruits. CHEST: Clear to auscultation, no rales, rhonchi or wheezes, or cough is heard. CARDIOVASCULAR: Heart reveals a regular rate and rhythm without murmurs, gallops or rubs. ABDOMEN: Scaphoid, soft, nontender, without organomegaly. Normal bowel sounds are noted. No rebou nd or guarding is noted. GENITOURINARY: Deferred. EXTREMITIES: Reveal left suprapubic tenderness area. Patient has been actually doing very well and has been transferring much better. IMPRESSION: 1. Nondisplaced left anterior pubic symphysis fracture. 2. Hypertension. 3. Gastroparesis. 4. Gastroesophageal reflux. 5. Osteoporosis. 6. Generalized weakness. 7. Palpitations. PLAN: 1. Continue physical therapy and occupational therapy. 2. Continue decubitus precautions. 3. Continue deep venous thrombosis and stress ulcer prophylaxis. 4. Continue present medications. 5. Wean off pain medicines as much as possible. 6. Encourage the patient to eat well. 7. Tylenol #3 rather than morphine.
[2016-11-24] MEDS ORDERED: Donepezil HCl 10 MG TAB PO SCH (21:00)
[2016-11-25] MEDS: Sodium Chloride 0.9% 1,000 ML IV SCH (00:53)
[2016-11-25 07:48] VITALS: BP 184/83; TEMP 97.3
[2016-11-25] MEDS: Calcium Carbonate 500 MG TAB PO SCH (08:05)
[2016-11-25] MEDS: Polyethylene Glycol 3350 17 GM Packet PO SCH (08:39)
--- NOTE | 2016-11-25 14:20 | DIS ---
DATE OF ADMISSION: 11/19/2016 DATE OF DISCHARGE OR TRANSFER TO SWING BED: 11/25/2016 HOSPITAL COURSE: The patient is a 76-year-old white female that fell at home and had a minimally di splaced fracture of the left anterior pubis. She had significant pain, was initially admitted, plac ed on fentanyl and then morphine, which made her go somewhat looney tunes. She eventually was switc hed over to Tylenol #3. She has been seen and followed by physical therapy, has actually seems to b e transferring better, walking cautiously, but is unstable. It is felt that she needs further physi vitaliy therapy and occupational therapy before she can go home. She was very independent at home. TRANSFER MEDICATIONS: Will include the following, 1. Acetaminophen 650 mg q.4 hours p.r.n. 2. Tylenol No. 3 one q.4 hours p.r.n. 3. Calcium carbonate or Os-Vitaliy 500 mg 1 daily with meals. 4. Dulcolax 10 mg daily p.r.n. 5. Calcium carbonate 1000 mg daily. 6. Donepezil 10 mg at bedtime. 7. Robitussin-DM p.r.n. 8. Milk of Magnesia p.r.n. 9. Metoprolol XL 12.5 mg daily. 10. Zofran 4 mg p.o. q.6 hours p.r.n. 11. Protonix 40 mg daily. 12. MiraLax 17 grams daily. 13. Raloxifene. 14. Evista 60 mg daily. 15. Zoloft 50 mg daily. PHYSICAL EXAMINATION: GENERAL: This is a well-developed, thin white female in no apparent distress at this time reveals p ain with any movement of left pubic symphysis area. HEENT: Reveals normocephalic, nontraumatic cranium. Pupils are equally round and reactive. Extrao cular movements intact. Nose and throat are slightly dry. NECK: Supple, without masses or bruits. CHEST: Clear to auscultation, no rales, rhonchi, wheezes, or cough. HEART: Regular rate and rhythm without murmurs, gallops or rubs. ABDOMEN: Scaphoid, soft, nontender with normal bowel sounds, tenderness in the lower left quadrant. No CVA tenderness is noted. GENITOURINARY: Reveals continued significant left suprapubic tenderness in the inguinal area. She has shooting pains when she moves. EXTREMITIES: Reveal no clubbing, cyanosis or edema. Rash is gone. NEUROLOGIC: The patient has no focal deficits. ASSESSMENT: 1. Nondisplaced left anterior pubic symphysis fracture. 2. Hypertension. 3. Palpitations. 4. Osteoporosis. 5. Reflux. 6. Anxiety depressive disorder. PLAN: 1. The patient will be continued on the same medications. 2. The patient will be transferred to swing bed here in the hospital so she can continue physical t herapy and occupational therapy. 3. She will continue with PT and OT to help her with her transfers and start her ADLs. 4. Continue to follow blood pressure. The patient's blood pressure closely. 5. Continue follow patient's palpitations. 6. Continue physical therapy and occupational therapy. 7. Continue DVT and stress ulcer prophylaxis. 8. Continue decubitus precautions.
== END 2016-11-25 11:05 | disposition swing bed (61) | DRG 536 ==
LOC: NAV ERS 01:51 → NAV ACUTE 04:25
PROVIDERS: ADMIT Family Medicine; ATTEND Family Medicine
DX: S32.592A Other specified fracture of left pubis, initial encounter for closed fracture (principal); F03.90 Unspecified dementia, unspecified severity, without behavioral disturbance, psychotic disturbance, mood disturbance, and anxiety; F05 Delirium due to known physiological condition; K31.84 Gastroparesis; I10 Essential (primary) hypertension; W19.XXXA Unspecified fall, initial encounter; Y92.009 Unspecified place in unspecified non-institutional (private) residence as the place of occurrence of the external cause; Z79.82 Long term (current) use of aspirin; M81.0 Age-related osteoporosis without current pathological fracture; K21.9 Gastro-esophageal reflux disease without esophagitis; F41.9 Anxiety disorder, unspecified; F32.9 Major depressive disorder, single episode, unspecified; R00.2 Palpitations; Z79.810 Long term (current) use of selective estrogen receptor modulators (SERMs)
CPT/HCPCS: 36415; 51702; 72170; 72192; 80048; 80053; 81001; 85007; 85025; 85027; 87086; 90471; 90715; 96374; A4216; J2270; J3010; J7050

== ENCOUNTER 2016-11-25 11:19 | Inpatient (IN) | payer MEDICARE, OTHER ==
[2016-11-25] MEDS ORDERED: Hydrocortisone Acetate 25 MG Suppository PR PRN (13:11)
[2016-11-25] MEDS ORDERED: Ondansetron ODT 4 MG TAB PO PRN (13:11)
[2016-11-25] MEDS ORDERED: Milk Of Magnesia 30 ML UDCUP PO PRN (13:11)
[2016-11-25] MEDS ORDERED: Calcium Carbonate 500 MG ChewTAB PO PRN (13:11)
[2016-11-25] MEDS ORDERED: Acetaminophen/Codeine 30-300mg Tablet PO PRN (13:11)
[2016-11-25] MEDS ORDERED: Guaifenesin DM 100-10/5 ML UDCUP PO PRN (13:11)
[2016-11-25] MEDS ORDERED: Bisacodyl 5 MG TAB PO PRN (13:11)
[2016-11-25 13:49] VITALS: BMI 17.6
[2016-11-25] MEDS: Donepezil HCl 10 MG TAB PO SCH (20:47)
[2016-11-26] MEDS: Calcium Carbonate 500 MG TAB PO SCH (08:26)
[2016-11-26] MEDS: Aspirin 81 mg Enteric Coated Tablet PO SCH (08:27)
[2016-11-26] MEDS: Donepezil HCl 10 MG TAB PO SCH (20:47)
[2016-11-26] MEDS: Acetaminophen 325 MG TAB PO PRN (20:47)
--- NOTE | 2016-11-27 01:25 | HP ---
DATE OF ADMISSION: 11/25/2016 DATE OF HISTORY AND PHYSICAL: 11/26/2016 HISTORY OF PRESENT ILLNESS: The patient is a very pleasant 76-year-old white female that was in [facility] when she fell approximately 6:00 this afternoon. She got up and had a little bit of pain, but gavin t and sat down. After a couple of hours her pain increased significantly and she was brought to the emergency room and found to have an acute minimally displaced fracture of the left anterior pubis. She was admitted to the hospital for pain management and physical therapy and occupational therapy. Patient did very well with pain management and started with physical therapy, but has had significan t weakness and is failed to reach maximum acute care hospital benefits and was transferred to a [facility] bed for continued physical therapy and occupational therapy. PAST MEDICAL HISTORY: Significant for the followin. Hypertension. 2. Gastroesophageal reflux. 3. Osteoporosis. 4. Allergic dermatitis. 5. Macular degeneration. 6. Anxiety. 7. Urgency or urinary frequency. 8. Diverticulitis. 9. Depression. PAST SURGICAL HISTORY: 1. Appendectomy in 1954. 2. Tonsillectomy in 1945. 3. Breast biopsy in 2001. 4. Colonoscopy by Dr. Naranjo in 2001. FAMILY HISTORY: Reveals patient's father at age 24 of unknown etiology. The patient's mother at age 86 of heart disease. The patient's paternal grandfather at age 70 with heart disea se. Patient's paternal grandmother at age 70. The patient's maternal grandmother at age of 80 with tuberculosis. The patient has 4 healthy sisters and 4 children. 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 Family history is positive for arthritis. The patient 's father in a plan crash at age 24. SOCIAL HISTORY: Reveals the patient never smoked, never drink, does not use any illicit drugs. ALLERGIES: Reveals the patient is only allergic to POISON JOSETTE. PRESENT MEDICATIONS: Reveals the patient presently is on the followin. Tylenol 650 mg q.4 hours p.r.n. fever, mild pain. 2. Tylenol #3 one q.4 hours p.r.n. [id number] pain,. 3. Aspirin 81 mg a day. 4. Dulcolax 10 mg daily p.r.n. constipation. 5. Calcium carbonate 1000 mg q.4 h. p.r.n. heartburn, indigestion. 6. Os-Vitaliy 500, 1800 mg each morning with meals. 7. Aricept 10 mg at bedtime. 8. Dextromethorphan with guaifenesin 15 mL p.r.n. cough. 9. Milk of magnesia 30 mL p.r.n. constipation. 10. Toprol 12.5 mg daily. 11. Zofran 4 mg q. 6 hours p.r.n. nausea and vomiting. 12. Protonix 40 mg daily. 13. MiraLax 17 grams daily. 14. Evista 60 mg daily. 15. Sertraline 50 mg at bedtime. REVIEW OF SYSTEMS: Revealed the patient denies any fever or chills at this time. She does have wea kness and she states she has continued pain left pubic inguinal groin area. Denies any headaches. Denies any vision or hearing differences. Her said she has just been very weak. Denies any cough, cold, congestion or respiratory problems. Denies any chest pain, chest palpitations, racing or skipping of slow heartbeat. Denies any significant shortness of breath, dyspnea on exertion or claudication. Denies any nausea, vomiting, diarrhea, constipation, black or bloody or tarry stools. Denies any problems besides just inguinal pain. She has not had any problems with urinary inco ntinence. Denies any significant hair loss. She does have poor appetite. She denies any significa nt dizziness. PHYSICAL EXAMINATION: GENERAL: This is a thin, well-developed white female in no apparent distress at this time. HEENT: Reveals normocephalic, nontraumatic cranium. Pupils are equally round and reactive. Nose a nd throat are slightly dry. NECK: Supple, without masses, nodes or bruits. CHEST: Clear to auscultation. No rales, rhonchi, wheezes or cough is heard. HEART: Reveals a regular rate and rhythm without murmurs, gallops or rubs. No S3 or S4 is noted. ABDOMEN: Soft, nontender, without organomegaly. Normal bowel sounds are noted. No rebound or guar ding is noted. GENITOURINARY: Deferred. The patient does have left pubic adnexal groin area tenderness. EXTREMITIES: Revealed no clubbing, cyanosis or edema. ASSESSMENT: 1. Nondisplaced left inferior pubic symphysis fracture. 2. Hypertension. 3. History of palpitations. 4. Osteoporosis. 5. Gastroesophageal reflux disease. 6. Anxiety depressive disorder. 7. Generalized weakness and debility. PLAN: 1. Transfer to swing bed. 2. Continue physical therapy. 3. Continue occupational therapy. 4. Continue pain management. 5. Continue Aricept for early memory problems. 6. Continue to follow the patient's blood pressure closely. 7. DVT and stress ulcer prophylaxis. 8. Decubitus precautions.
--- NOTE | 2016-11-27 08:04 | PRG ---
DATE OF SERVICE: 11/27/2016 HISTORY OF PRESENT ILLNESS: The patient is a 76-year-old white female initially admitted to [facility] acute bed after falling and an acute minimally displaced fracture of the left an terior pubic symphysis. She was admitted to the hospital for pain management, physical therapy and occupational therapy. The patient is slowly progressing, slowly getting better. She still has issu es with pain, but she is beginning to be able to transfer and to walk slightly. It is felt that she needs to continued physical therapy; therefore, she was transferred to swing bed on 11/25/2016. The patient is still very unsteady and needs to continue physical therapy; therefore, we will contin ue her therapy. SUBJECTIVE: The patient has no complaints today. She states she is feeling better. She has still significant pain, controlled mainly with tramadol or Tylenol #3. Otherwise, she has no complaints. OBJECTIVE: Vital signs this morning reveal blood pressure 139/76, pulse 72, respirations 18-20, O2 sat 92-95%, T-max 97.8. PHYSICAL EXAMINATION: GENERAL: This is a well-developed, very thin white female in no apparent distress. HEENT: Reveals normocephalic, nontraumatic cranium. Pupils equal, round, and reactive. Extraocula r movements intact. Nose and throat are slightly dry. NECK: Supple, without masses, nodes or bruits. CHEST: Clear to auscultation. No rales, rhonchi or wheezes are heard. Breath sounds are very dist ant. The patient takes very shallow breaths. CARDIOVASCULAR: Reveals a regular rate and rhythm without murmurs, gallops or rubs. No palpitation s are heard, although the patient does have a history of palpitations. ABDOMEN: Scaphoid, soft, nontender, without organomegaly, normal bowel sounds are noted. No reboun d or guarding is noted. : She has had a Segundo catheter removed, left pubic adnexal groin area is still very tender. EXTREMITIES: Reveal no clubbing, cyanosis or edema, just generalized weakness. IMPRESSION: 1. Acute nondisplaced left inferior pubic symphysis fracture. 2. Hypertension. 3. Palpitations. 4. Osteoporosis. 5. Gastroesophageal reflux disease. 6. Generalized weakness and debility. 7. Anxiety depressive disorder. PLAN: 1. Continue swing bed 2. Continue physical therapy. 3. We will continue occupational therapy. 4. We will continue pain management. 5. Continue Aricept for early memory problems. 6. We will continue to follow the patient's blood pressure closely. 7. DVT, stress ulcer prophylaxis. 8. Decubitus precautions.
[2016-11-27] MEDS: Aspirin 81 mg Enteric Coated Tablet PO SCH (08:42)
[2016-11-27] MEDS: Calcium Carbonate 500 MG TAB PO SCH (08:42)
[2016-11-27] MEDS: Acetaminophen 325 MG TAB PO PRN (14:59)
[2016-11-27] MEDS: Donepezil HCl 10 MG TAB PO SCH (20:52)
[2016-11-28] MEDS: Acetaminophen 325 MG TAB PO PRN (08:30)
[2016-11-28] MEDS: Calcium Carbonate 500 MG TAB PO SCH (08:31)
[2016-11-28] MEDS: Aspirin 81 mg Enteric Coated Tablet PO SCH (08:33)
--- NOTE | 2016-11-28 16:15 | PRG ---
DATE OF ADMISSION: 11/25/2016 DATE OF SERVICE: 11/28/2016 HISTORY OF PRESENT ILLNESS: The patient is a 76-year-old white female very pleasant who fell, had a cute minimally displaced fracture of left anterior pubic symphysis. She was [facility] for physical therapy and occupational therapy. She was admitted to swing bed for continued physic al therapy and occupational therapy and balance concerns. SUBJECTIVE: The patient states she is doing slightly better. She is having less pain. She has no complaints. OBJECTIVE: VITAL SIGNS: Today, reveal blood pressure 134/69, pulse 65 to 72, respirations 18 to 20, O2 sat 92% on room air, temperature 98.5. PHYSICAL EXAMINATION: GENERAL: This is a well-developed, well-nourished, very pleasant, thin white female in no apparent distress at this time. HEENT: Reveals normocephalic, nontraumatic cranium. Pupils are equally round and reactive. Extrao cular movements intact. Nose and throat are slightly dry. NECK: Supple, without masses, nodes or bruits. LUNGS: Chest is clear to auscultation. No rales, rhonchi or wheezes are heard. HEART: Reveals a regular rate and rhythm without murmurs, gallops or rubs. ABDOMEN: Soft, nontender, without organomegaly, normal bowel sounds are noted. No rebound or guard ing is noted. GENITOURINARY: Deferred. EXTREMITIES: Reveal generalized weakness and left suprapubic pain still. Segundo catheter has been r emoved. IMPRESSION: 1. Acute nondisplaced left inferior pubic symphysis fracture. 2. Hypertension. 3. Palpitations. 4. Osteoporosis. 5. Gastroesophageal reflux disease. 6. Generalized weakness and debility. 7. Anxiety depressive disorder. PLAN: 1. Continue swing bed. 2. Continue physical therapy. 3. Continue occupational therapy. 4. Continue pain management. 5. Continue Aricept. 6. Move Zoloft from evening to every morning. 7. Continue to follow the patient's blood pressure closely. 8. DVT and stress ulcer prophylaxis. 9. Decubitus precautions.
[2016-11-28] MEDS: Donepezil HCl 10 MG TAB PO SCH (20:43)
[2016-11-29] MEDS: Calcium Carbonate 500 MG TAB PO SCH (08:00)
[2016-11-29] MEDS: Aspirin 81 mg Enteric Coated Tablet PO SCH (08:45)
[2016-11-29] MEDS: Acetaminophen 325 MG TAB PO PRN (17:22)
[2016-11-29] MEDS: Donepezil HCl 10 MG TAB PO SCH (20:53)
--- NOTE | 2016-11-29 23:24 | PRG ---
DATE OF SERVICE: 11/29/2016 HISTORY OF PRESENT ILLNESS: Ms. Hamilton is a very pleasant 76-year-old white female that fell and h ad a minimally displaced fracture of the left anterior pubic symphysis. She was admitted to the [facility] for physical therapy, occupational therapy, and pain management. She was transferred to swing bed for continued physical therapy, occupational therapy, balance concerns and pain management. SUBJECTIVE: The patient states she is doing much better. She walked a little bit further today. H er balance is slow, but slowly be getting better. She has continued pain, but is having less OBJECTIVE: VITAL SIGNS: Today reveal blood pressure is slightly elevated this morning 151/67, pulse 71 to 73, respirations 16-20, O2 sat 92-95% on room air, T-max is 98.5. PHYSICAL EXAMINATION: GENERAL: This is a well-developed, well-nourished, very thin white female, in no apparent distress at this time. HEENT: Reveals normocephalic, nontraumatic cranium. Pupils equal, round, and reactive. Extraocula r movements are intact. Nose and throat are slightly dry. NECK: Supple, without masses, nodes or bruits. CHEST: Clear to auscultation, no rales, rhonchi, wheezes or cough is heard. CARDIOVASCULAR: Reveals a regular rate and rhythm without murmurs, gallops or rubs. ABDOMEN: Soft, nontender, without organomegaly, normal bowel sounds are noted. No rebound or guard ing is noted. GENITOURINARY: Deferred. EXTREMITIES: Reveal generalized weakness, left suprapubic pain is still there. Segundo catheter has been removed. The patient now has a skin tear around her right elbow that has been bandaged. IMPRESSION: 1. Acute nondisplaced left anterior pubic symphysis fracture. 2. Hypertension. 3. Palpitations. 4. Osteoporosis. 5. Generalized weakness and debility. 6. Gastroesophageal reflux. 7. Anxiety depressive disorder. PLAN: 1. Continue to follow patient's vital signs, especially blood pressure make sure she did not get to o high and too low. 2. Continue physical therapy and occupational therapy. 3. Continue pain management. 4. Continue Aricept. 5. Move the Zoloft from evening to morning. 6. Continue to follow the patient's blood pressure closely. 7. DVT and stress ulcer prophylaxis. 8. Decubitus precautions.
[2016-11-30] MEDS: Calcium Carbonate 500 MG TAB PO SCH (08:15)
[2016-11-30] MEDS: Aspirin 81 mg Enteric Coated Tablet PO SCH (08:41)
--- NOTE | 2016-11-30 17:26 | PRG ---
DATE OF ADMISSION: 11/25/2016 DATE OF PROGRESS NOTE: 11/30/2016 HISTORY OF PRESENT ILLNESS: The patient is a 76-year-old very pleasant white female that was at [facility] and fell. She had a resultant minimally displaced fracture of the left anterior pubic symphysis. She was admitted to the hospital for physical therapy, occupational therapy, and pain management. She was in the hospital for a couple days and transferred to [facility] for continued physical therapy, o ccupational therapy, and pain management. She is also having bowel concerns, but slowly getting bet ter. SUBJECTIVE: She states she is feeling better today. She still has a problem with scissor walking, cannot legs very far. PHYSICAL EXAMINATION: VITAL SIGNS: Reveal blood pressure this morning was 130/63, pulse 66 to 73, respirations 16 to 20, O2 sat 93% to 95% on room air, temperature max 97.8. GENERAL: This is a well-developed, thin white female, in no apparent distress at this time. HEENT: Reveals normocephalic, nontraumatic cranium. Pupils equal, round, and reactive. Extraocula r movements intact. Nose and throat are slightly dry. NECK: Supple, without masses, nodes or bruits. LUNGS: Chest is clear to auscultation. No rales, no rhonchi, no wheezes and no cough is heard at t his time. HEART: Reveals a regular rate and rhythm without murmurs, gallops or rubs. ABDOMEN: Soft, nontender, without organomegaly, normal bowel sounds are noted. No rebound or guard ing is noted. : Deferred. EXTREMITIES: Reveal no clubbing, cyanosis or edema. NEUROLOGIC: The patient continues to have generalized weakness and balance problems. She has left suprapubic pain, but continues to improve when her walking is improving. Segundo catheter has been re moved. IMPRESSION: 1. Acute nondisplaced left anterior pubic symphysis fracture. 2. Hypertension. 3. Palpitations. 4. Osteoporosis. 5. Generalized weakness and debility. 6. Gastroesophageal reflux. 7. Anxiety depressive disorder. PLAN: 1. Continue to follow patient's vital signs. Blood pressure: Make sure she does not drop her bloo d pressure. 2. Continue physical therapy and occupational therapy. 3. Continue pain management. 4. Continue Aricept. 5. Moves Zoloft from evening to morning. 6. Continue to follow the patient's blood pressure closely. 7. Continue DVT and stress ulcer prophylaxis. 8. Continue decubitus precautions.
[2016-11-30] MEDS: Donepezil HCl 10 MG TAB PO SCH (21:30)
[2016-12-01] MEDS: Aspirin 81 mg Enteric Coated Tablet PO SCH (08:48)
[2016-12-01] MEDS: Calcium Carbonate 500 MG TAB PO SCH (08:48)
--- NOTE | 2016-12-01 10:19 | PRG ---
DATE OF SERVICE: 12/01/2016 HISTORY OF PRESENT ILLNESS: This is a 76-year-old white female that fell at home. She had resultan t minimally displaced fracture of the left anterior pubic symphysis. She was admitted to the [facility] for physical therapy and occupational therapy. She was still extremely weak and having a lot of pain, so therefore she was transferred to a swing bed for continued physical therapy, occupational t herapy, pain management and balance. SUBJECTIVE: She states she feels a little bit stronger today. Physical therapy is in the room with her, has worked with her all morning. They say she is definite ly getting better, but she still has significant balance problems, especially falling backwards. PHYSICAL EXAMINATION: VITAL SIGNS: This morning reveal blood pressure 162/68, pulse 66-71, respirations 16-20, O2 sat 93 to 95%, temperature max is 98.7. GENERAL: This is a well-developed, very thin, weak white female in no apparent distress at this valdemar e. HEENT: Reveals normocephalic, nontraumatic cranium. Pupils are equally round and reactive. Extrao cular movements intact. Nose and throat are somewhat dry. NECK: Supple, without masses, nodes or bruits. LUNGS: Chest is clear to auscultation, no rales, rhonchi or wheezes. No cough is heard at this valdemar e. CARDIOVASCULAR: Reveals a regular rate and rhythm without murmurs, gallops or rubs. ABDOMEN: Soft, nontender, without organomegaly. Normal bowel sounds are noted. No rebound or guar ding is noted. : Deferred. EXTREMITIES: Reveal no clubbing, cyanosis or edema. NEUROLOGIC: The patient has generalized weakness and significant balance problems, especially falli ng backwards. She continues to have suprapubic pain that continues to improve. Her walking has imp roved. Her stamina is improved, but her balance is terrible. Segundo catheter has been removed. IMPRESSION: 1. Acute nondisplaced left anterior pubic symphysis fracture. 2. Hypertension. 3. Palpitations. 4. Osteoporosis. 5. Generalized weakness and debility. 6. Gastroesophageal reflux. 7. Anxiety and depressive disorder. PLAN: 1. Continue to follow the patient's blood pressure and make sure blood pressure does not get too lo w or too high. 2. Continue physical therapy and occupational therapy. 3. Continue pain management. 4. Continue Aricept. 5. Continue Zoloft in the mornings. 6. Follow the patient's blood pressure closely. 7. Continue DVT and stress ulcer prophylaxis. 8. Continue decubitus precautions.
[2016-12-01] MEDS: Acetaminophen 325 MG TAB PO PRN (20:50)
[2016-12-01] MEDS: Donepezil HCl 10 MG TAB PO SCH (20:50)
[2016-12-02] MEDS: Calcium Carbonate 500 MG TAB PO SCH (08:25)
[2016-12-02] MEDS: Aspirin 81 mg Enteric Coated Tablet PO SCH (09:25)
[2016-12-02] MEDS: Polyethylene Glycol 3350 17 GM Packet PO PRN (09:40)
--- NOTE | 2016-12-02 11:19 | PRG ---
DATE OF ADMISSION: 11/25/2016 DATE OF PROGRESS NOTE: 12/02/2016 HISTORY OF PRESENT ILLNESS: Ms. Hamilton is a very pleasant 76-year-old white female that fell at [facility]. She had resultant minimally displaced fracture of the left anterior pubic symphysis. She was a dmitted to the hospital for physical therapy, occupational therapy, and pain control. The patient remained extremely weak and is having some balance problems with therefore she was trans ferred to swing bed for continued physical therapy, occupational therapy, balance therapy and pain m anagement. SUBJECTIVE: The patient states she still feels very weak in the physical therapy, after discussion again say that she has problems with her balance mainly falling trying to fall backwards. She will continue to do her therapy is indicated. She is also somewhat depressed, had a long discussion with the patient's about this. We uli l increase her Zoloft from 50 mg a day to 100 mg. Otherwise, the patient has no complaints. PHYSICAL EXAMINATION: VITAL SIGNS: Reveal blood pressure this morning is 140/64, pulse 69 to 72, respirations 20, O2 sat 92% to 93% on room air, temperature 98.0. GENERAL: This is a very thin, but well-developed white female in no apparent distress at this time. HEENT: Reveals normocephalic, nontraumatic cranium. Pupils equal, round, and reactive. Extraocula r movements intact. Nose and throat are slightly dry. NECK: Supple, without masses, nodes or bruits. LUNGS: Chest is clear to auscultation. No rales, no rhonchi, no wheezes are heard. No cough is he yumi at this time. HEART: Reveals a regular rate and rhythm without murmurs, gallops or rubs. ABDOMEN: Scaphoid, soft, nontender, without organomegaly, normal bowel sounds are noted. No reboun d or guarding is noted. : Deferred. EXTREMITIES: Reveal no clubbing, cyanosis or edema, just poor balance. NEUROLOGIC: The patient is pretty much intact. She has generalized weakness. She has significant balance problems, especially the following backwards. The patient's suprapubic pain remains, but slowly improving. Her stamina is slightly improved also. Segundo catheter had been removed. IMPRESSION: 1. Acute nondisplaced left anterior pubic symphysis fracture. 2. Hypertension. 3. Palpitations. 4. Osteoporosis. 5. Generalized weakness. 6. Gastroesophageal reflux disease. 7. Anxiety depressive disorder. PLAN: 1. Increase Zoloft from 50 mg to 100 mg a day. 2. Continue to follow the patient's blood pressure closely for orthostasis and high blood pressure. 3. Continue physical therapy and occupational therapy. 4. Continue pain management. 5. Continue Aricept. 6. Continue to follow the patient's blood pressure closely. 7. Continue DVT and stress ulcer prophylaxis. 8. Continue decubitus precautions.
[2016-12-02] MEDS: Donepezil HCl 10 MG TAB PO SCH (21:03)
[2016-12-03] MEDS: Calcium Carbonate 500 MG TAB PO SCH (09:17)
[2016-12-03] MEDS: Aspirin 81 mg Enteric Coated Tablet PO SCH (09:17)
--- NOTE | 2016-12-03 10:27 | PRG ---
DATE OF SERVICE: 12/03/2016 HISTORY OF PRESENT ILLNESS: Ms. Hamilton is a very pleasant 76-year-old white female that unfortunat pedrito fell in her home, displaced fracture of left anterior pubic symphysis, which was minimally displ aced. She was admitted to the hospital for physical therapy, occupational therapy and pain control. Eventually, she stabilized, she is somewhat better, but was still very weak. She was transferred to swing bed for physical therapy, occupational therapy, balance therapy and pain management at [facility]. SUBJECTIVE: The patient continues to feel weak. She is very slow at what she is doing. We did inc rease her Zoloft from 50 to 100 mg yesterday. PHYSICAL EXAMINATION: GENERAL: Reveals a well-developed, thin white female in no apparent distress, just very tired. HEENT: Reveals normocephalic, nontraumatic cranium. Pupils are equally round and reactive. Extrao cular movements intact. Nose and throat are slightly dry. NECK: Supple, without masses, nodes or bruits. CHEST: Clear to auscultation, no rales, rhonchi or wheezes are heard. CARDIOVASCULAR: Reveals a regular rate and rhythm without murmurs, gallops or rubs. ABDOMEN: Scaphoid, soft, nontender, without organomegaly. GENITOURINARY: Deferred. EXTREMITIES: Reveal no clubbing, cyanosis or edema. NEUROLOGIC: The patient is intact, just has significant generalized weakness. She continues to hav e suprapubic pain, slowly improving. She is walking. Catheter was removed. IMPRESSION: 1. Nondisplaced acute anterior pubic symphysis fracture. 2. Hypertension. 3. Palpitations. 4. Osteoporosis. 5. Generalized weakness. 6. Gastroesophageal reflux. 7. Anxiety depressive disorder. PLAN: 1. Continue Zoloft at 100 mg a day. 2. Continue to follow blood pressure closely for orthostasis. 3. Continue physical therapy and occupational therapy. 4. Continue pain management. 5. Continue Aricept. 6. Continue DVT and stress ulcer prophylaxis. 7. We will continue decubitus precautions. 8. Lab for tomorrow.
[2016-12-03] MEDS: Acetaminophen 325 MG TAB PO PRN (12:31)
[2016-12-03] MEDS: Donepezil HCl 10 MG TAB PO SCH (20:10)
[2016-12-04 05:45] LABS: #Basophils 0.1 thou/uL (0.0-0.2); #Eosinphils 0.2 thou/uL (0.0-0.7); #Lymphocytes 3.2 thou/uL (1.20-3.40); #Monocytes 0.8 thou/uL (0.11-0.59); #Neutrophils 5.8 thou/uL (1.40-6.50); %Basophils 1.5 % (0.0-1.0); %Eosinophils 1.9 % (0.0-10.0); %Lymphocytes 31.7 % (21.0-51.0); Hematocrit 37.2 % (36.0-47.0); Red Blood Cell (RBC) Count 4.07 mill/uL (4.20-5.40); White Blood Cell (WBC) Count 10.1 thou/uL (4.8-10.8)
[2016-12-04 05:55] LABS: ALT (SGPT) 46 U/L (0-55); AST (SGOT) 39 U/L (5-34); Alkaline Phosphatase 232 U/L (40-150); Anion Gap 11 mmol/L (10-20); BUN (Urea Nitrogen) 19 mg/dL (9.8-20.1); Bilirubin, Total 0.5 mg/dL (0.2-1.2); Calc. Creatinine Clearance 50 mL/min (70-130); Calcium 8.8 mg/dL (7.8-10.44); Carbon Dioxide 27 mmol/L (23-31); Chloride 109 mmol/L (98-107); Estimated GFR-MDRD 76; Globulin 2.9 g/dL (2.4-3.5); Protein, Total 6.3 g/dL (5.8-8.1)
[2016-12-04] MEDS: Calcium Carbonate 500 MG TAB PO SCH (08:58)
[2016-12-04] MEDS: Aspirin 81 mg Enteric Coated Tablet PO SCH (09:00)
--- NOTE | 2016-12-04 14:15 | PRG ---
DATE OF ADMISSION: 11/25/2016 DATE OF SERVICE: 12/04/2016 SUBJECTIVE: Ms. Hamilton is a very pleasant 76-year-old white female, slightly confused, but much be tter now than this morning. She unfortunately fell at home. She unfortunate fell at home with a fractured left anterior pubic symphysis and eventually was trans ferred to swing bed for physical therapy, occupational therapy, balance therapy and pain management. She states she did fairly well this morning and had lot balance issues when she sat on the big ball and she realizes that her balance is terrible. She has no other complaints today. OBJECTIVE: VITAL SIGNS: Today reveal blood pressure 158/72, pulse 69 to 75, respirations 16 to 20, O2 sat 92% to 94% on room air, temperature max is 98.2. GENERAL: This is a well-developed, very thin white female in no apparent distress at this time. HEENT: Reveals normocephalic, nontraumatic cranium. Pupils are equally round and reactive. Extrao cular movements intact. Nose and throat are slightly dry. NECK: Supple, without masses, nodes or bruits. CHEST: Clear to auscultation. No rales, rhonchi or wheezes are heard. CARDIOVASCULAR: Reveals a regular rate and rhythm without murmurs, gallops or rubs. ABDOMEN: Scaphoid, soft, nontender, without organomegaly. GENITOURINARY: Deferred. EXTREMITIES: Reveal no clubbing, cyanosis or edema. NEUROLOGIC: Patient is pretty much intact except for her posterior balance, which seems to be backw ards. She continues to have on extremities suprapubic pain, which is slowly improving. She is walk ing, but very slowly. IMPRESSION: 1. Nondisplaced acute anterior pubic symphysis fracture. 2. Hypertension. 3. Palpitations. 4. Osteoporosis. 5. Generalized weakness. 6. Gastroesophageal reflux disease. 7. Anxiety depressive disorder. PLAN: 1. Continue to follow the patient's blood pressure closely. 2. Continue physical therapy and occupational therapy. 3. Continue follow up for palpitations. 4. Continue, I encourage patient to eat. 5. Continue to have patient due her DVT and stress ulcer prophylaxis. 6. Continued decubitus precautions. 7. I did talk with the patient about possible transfer to a nursing care facility, if she continues to have significant problems and does not progress.
[2016-12-04] MEDS: Donepezil HCl 10 MG TAB PO SCH (20:34)
[2016-12-05] MEDS: Aspirin 81 mg Enteric Coated Tablet PO SCH (09:04)
[2016-12-05] MEDS: Calcium Carbonate 500 MG TAB PO SCH (09:04)
--- NOTE | 2016-12-05 12:28 | PRG ---
DATE OF ADMISSION: 11/25/2016 DATE OF PROGRESS NOTE: 12/05/2016 HISTORY OF PRESENT ILLNESS: Ms. Hamilton is a very pleasant 76-year-old white female that fell at [facility]. She had a resultant minimally displaced fracture of the left anterior pubic symphysis. She was admitted to the hospital and eventually transferred to swing bed for physical therapy, occupational therapy, and balance therapy and pain control. The patient remains extremely weak, but is actually doing much better. She walked 600+ feet yesterd ay, but she still continues to have loss of balance. This morning she is working with balance, she has problems with scissor walking. She has problems with standing up straight. She has problems wi th mainly being bent over too much. This morning, she was the first time she was able to put on her pants without significant assistance. She continues to progress. I had a long discussion to the p hysical therapist and occupational therapist this morning and they feel like she continues to progre ss and would like to keep her longer to continue to maximize her progress. She is agreeable and her is agreeable. OBJECTIVE: VITAL SIGNS: This morning reveal blood pressure is 122/57, pulse 69 to 78, respirations 16 to 20, O 2 sat 94%, and temperature max is 98.2. GENERAL: This is a well-developed, well-nourished, very weak white female, but she is doing much be tter in physical therapy. HEENT: Reveals normocephalic, nontraumatic cranium. Pupils are equally round and reactive. Extrao cular movements intact. Nose and throat are slightly dry. NECK: Supple, without masses, nodes or bruits. CHEST: Clear to auscultation. No rales, rhonchi, wheezes or cough is heard. CARDIOVASCULAR: Reveals a regular rate and rhythm without murmurs, gallops or rubs. ABDOMEN: Scaphoid, soft, nontender, without organomegaly, normal bowel sounds are noted. No reboun d or guarding is noted. : Deferred. EXTREMITIES: Reveal generalized weakness, poor balance, but is improving. Already the patient ate 100% of all of her meals yesterday, which is the first time since then. The patient states the suprapubic pain slowly is improving, catheter is out. IMPRESSION: 1. Acute nondisplaced left anterior pubic symphysis fracture. 2. Hypertension. 3. Palpitations. 4. Osteoporosis. 5. Generalized weakness. 6. Gastroesophageal reflux disease. 7. Anxiety depressive disorder. PLAN: 1. Continue Zoloft 100 mg daily. 2. Continue to follow the patient's blood pressure closely for orthostasis. 3. Continue physical therapy and occupational therapy. 4. Continue pain management. 5. Continue DVT and stress ulcer prophylaxis. 6. Continue decubitus precautions. 7. Continue Aricept. Dr. Paulino is exhibition organiser this weekend.
[2016-12-05] MEDS: Donepezil HCl 10 MG TAB PO SCH (20:34)
[2016-12-06] MEDS: Calcium Carbonate 500 MG TAB PO SCH (08:34)
[2016-12-06] MEDS: Aspirin 81 mg Enteric Coated Tablet PO SCH (08:34)
--- NOTE | 2016-12-06 17:17 | PRG ---
DATE OF SERVICE: 12/06/2016 SUBJECTIVE: Ms. Hamilton is doing well. She is ambulating in the hallways with her using he r walker. She states the pain is well controlled. She denies any lightheadedness, dizziness. She denies any chest pain or shortness of breath. OBJECTIVE: VITAL SIGNS: She is afebrile, heart rate is 75, respirations 18, oxygen saturation is 92%, blood pr essure 138/65. CARDIOVASCULAR: S1, S2 plus. RESPIRATORY: Normal vesicular breath sounds. ABDOMEN: Soft, nontender, bowel sounds heard in all quadrants. EXTREMITIES: Without cyanosis or clubbing. IMPRESSION: 1. Acute nondisplaced left anterior pubic symphysis fracture. 2. Hypertension. 3. Osteoporosis. 4. Gastroesophageal reflux disease. 5. Improving weakness. PLAN: 1. Continue current medications. 2. Physical therapy. 3. Nutritional support. 4. Pain control. 5. DVT and stress ulcer prophylaxis. 6. Decubitus precautions. 7. Routine laboratory values.
[2016-12-06] MEDS: Donepezil HCl 10 MG TAB PO SCH (20:50)
[2016-12-06] MEDS: Acetaminophen 325 MG TAB PO PRN (20:50)
[2016-12-07] MEDS: Calcium Carbonate 500 MG TAB PO SCH (09:56)
[2016-12-07] MEDS: Aspirin 81 mg Enteric Coated Tablet PO SCH (09:57)
--- NOTE | 2016-12-07 11:33 | PRG ---
DATE OF SERVICE: 12/07/2016. SUBJECTIVE: Ms. Hamilton is doing well. Denies any complaints, resting comfortably, tolerating her therapy and her diet. Her is in the room. Yesterday after, she walked about 6 times aroun d the nurses' station. OBJECTIVE: VITAL SIGNS: She is afebrile, heart rate is 75, respirations 18, oxygen saturation is 93% on room a ir, blood pressure is 150/65. CARDIOVASCULAR: S1, S2 plus. RESPIRATORY: Normal vesicular breath sounds. ABDOMEN: Soft, nontender, bowel sounds heard in all quadrants. EXTREMITIES: Without cyanosis or clubbing. Peripheral pulses are palpable. IMPRESSION: 1. Pubic symphysis fracture. 2. Hypertension. 3. Osteoporosis. 4. Gastroesophageal reflux disease. 5. Improving deconditioning. PLAN: 1. Continue current medications. 2. Physical therapy. 3. Nutritional support. 4. Deep venous thrombosis and stress ulcer prophylaxes. 5. Decubitus precautions, Dr. David Clinton back tonight.
[2016-12-07] MEDS: Acetaminophen 325 MG TAB PO PRN ×2 (17:00→21:32)
[2016-12-07] MEDS: Donepezil HCl 10 MG TAB PO SCH (21:33)
[2016-12-08] MEDS: Aspirin 81 mg Enteric Coated Tablet PO SCH (08:44)
[2016-12-08] MEDS: Calcium Carbonate 500 MG TAB PO SCH (08:44)
--- NOTE | 2016-12-08 10:04 | PRG ---
DATE OF SERVICE: 12/08/2016 SUBJECTIVE: Ms. Hamilton is a very pleasant 75-year-old white female that fell at home and had minim ally displaced left anterior pubic symphysis fracture. She was admitted to the hospital and eventua lly transfer to swing bed for PT, OT balance therapy and pain control. The patient is actually a little bit better today, her balance is a little bit better. She continue s to slowly improve and is improving dressing herself. She has no complaints today. PHYSICAL EXAMINATION: GENERAL: This is a well-developed, well-nourished, very thin white female in no apparent distress. HEENT: Reveals normocephalic, nontraumatic cranium. Pupils are equally round and reactive. Extrao cular movements intact. Nose and throat are slightly dry. NECK: Supple, without mass, nodes or bruits. CHEST: Clear to auscultation. No rales, rhonchi or wheezes are heard. CARDIOVASCULAR: Reveals a regular rate and rhythm without murmurs, gallops or rubs. ABDOMEN: Scaphoid, soft, nontender, without organomegaly, normal bowel sounds are noted. No reboun d or guarding is noted. : Deferred. EXTREMITIES: Reveals generalized weakness and poor balance, but gradually improving. The therapist this morning said she has significantly improved since last week and she is dressing herself or try ing to, but very, very slow, but improved. Suprapubic pain is also improving. IMPRESSION: 1. Acute nondisplaced left anterior pubic symphysis fraction. 2. Hypertension. 3. Palpitations. 4. Osteoporosis. 5. Generalized weakness. 6. Gastroesophageal reflux disease. 7. Anxiety and depressive disorder. PLAN: 1. Continue Zoloft 100 mg daily. 2. Continue to follow the patient's blood pressure closely for orthostasis. 3. Continue PT and OT. 4. Continue pain management. 5. Continue DVT and stress ulcer prophylaxis. 6. We will continue decubitus precautions.
[2016-12-08] MEDS: Donepezil HCl 10 MG TAB PO SCH (21:38)
[2016-12-09] MEDS: Calcium Carbonate 500 MG TAB PO SCH (08:47)
[2016-12-09] MEDS: Aspirin 81 mg Enteric Coated Tablet PO SCH (08:47)
--- NOTE | 2016-12-09 09:38 | PRG ---
DATE OF SERVICE: 12/09/2016 HISTORY OF PRESENT ILLNESS: The patient is a pleasant 76-year-old white female who lives in [facility] that initially had a fall at home which resulted in a minimally displaced fracture of left anterio r pubic symphysis. She was admitted to the hospital then she was transferred to swing bed for physi latoya therapy, occupational therapy, balance therapy and pain control. The patient has remains extremely weak, but is actually slowly getting better. It is felt that she has reached maximum medical benefit here, but continues to have balance problems. I talked with taya sical therapy and occupational therapy this morning, they continue to work on balance problems, but her has considered [facility] so that they could incre ase her therapy there in hopes of getting her stronger so that she can go home. VITAL SIGNS: Today reveal a blood pressure 137/63, pulse 62-88, respirations 16-19, O2 sat 93-94%. T-max is 99.1. PHYSICAL EXAMINATION: GENERAL: This is a well-developed, very thin, weak white female in no apparent distress at this [facility]. HEENT: Reveals normocephalic, nontraumatic cranium. Pupils are equally round and reactive. Extrao cular movements intact. Nose and throat are slightly dry. NECK: Supple, without masses, nodes or bruits. LUNGS: Chest is clear to auscultation. No rales, rhonchi or wheezes are heard. CARDIOVASCULAR: Reveals a regular rate and rhythm without murmurs, gallops or rubs. ABDOMEN: Scaphoid, soft, nontender, without organomegaly, normal bowel sounds are noted. No reboun d or guarding is noted. : Deferred. EXTREMITIES: Generalized weakness and poor balance. She continues to gradually improve. The therapist this morning has her standing with her feet spread about a foot apart, tapping of the right toe up and down for 20 counts and then tapping the left toe up and down for 20 counts. Then s he will raise up on her heel for 20 counts, right heel then then left heel. She is trying, but she continues to have some significant balance problems. Suprapubic pain is continuing to slowly improve. IMPRESSION: 1. Acute nondisplaced left anterior pubic symphysis fracture. 2. Hypertension. 3. Palpitations. 4. Osteoporosis. 5. Generalized weakness. 6. Gastroesophageal reflux. 7. Significant balance problems. 8. Anxiety depressive disorder. PLAN: 1. Continue Aricept. 2. Continue Zoloft. 3. Continue to follow the patient's blood pressure closely for orthostasis. 4. Continue physical therapy and occupational therapy. 5. Continue pain management. 6. Continue DVT and stress ulcer prophylaxis. 7. Continued decubitus precautions. 8. Continue balance exercises. The patient has been apparently approved at [facility]. We will consider moving her there Thursday after her morning therapy session.
[2016-12-09] MEDS: Donepezil HCl 10 MG TAB PO SCH (21:37)
[2016-12-10] MEDS: Aspirin 81 mg Enteric Coated Tablet PO SCH (08:44)
[2016-12-10] MEDS: Calcium Carbonate 500 MG TAB PO SCH (08:45)
--- NOTE | 2016-12-10 19:50 | PRG ---
DATE OF SERVICE: 12/10/2016 DATE OF ADMISSION: 11/25/2016 SUBJECTIVE: Ms. Hamilton is a very pleasant 76-year-old white female who fell at home and resultant minimally displaced fracture of left anterior pubic symphysis. She is admitted to the hospital and eventually transferred to Swing Bed for physical therapy, occupational therapy, abdominal therapy an d pain control. She continues to do slowly better, but she had significant balance problems, especi ally falling backwards.
--- NOTE | 2016-12-10 20:28 | PRG ---
DATE OF SERVICE: 12/10/2016 HISTORY OF PRESENT ILLNESS: Ms. Hamilton is a very pleasant 76-year-old white female who fell [facility]. She had resultant minimally displaced fracture of left anterior pubic symphysis. She was admitt ed to the hospital and admission for transfer to swing bed for physical therapy, occupational therap y, balance therapy and pain control. The patient continues to have significant balance problem and working diligently with OT and PT to overcome those. Unfortunately, she has reached pretty much max [facility] medical benefit at the hospital where transferring her to [facility] fo r continued physical therapy, occupational therapy and balance therapy. She will continue to be enc ouraged to eat and to continue with therapy there: PHYSICAL EXAMINATION: VITAL SIGNS: Today reveal blood pressure is 144/65, pulse 69-75, respirations 16-19, O2 sat 93%-94% on room air, T-max is 98.2. GENERAL: This is a well-developed, very thin, white female in no apparent distress at this time. HEENT: Reveals normocephalic and nontraumatic cranium. Pupils are equally round and reactive. Ext raocular movements intact. Nose and throat are slightly dry. NECK: Supple, without masses, nodes or bruits. CHEST: Clear to auscultation. No rales, rhonchi or wheezes are heard. CARDIOVASCULAR: Reveals regular rate and rhythm without murmurs, gallops or rubs. ABDOMEN: Scaphoid, soft, nontender, without organomegaly, normal bowel sounds are noted. No reboun d or guarding is noted. GENITOURINARY: Deferred. EXTREMITIES: Generalized weakness and poor balance. IMPRESSION: 1. Acute nondisplaced left anterior pubic symphysis fracture with pain. 2. Hypertension. 3. Palpitations. 4. Osteoporosis. 5. Generalized weakness. 6. Gastroesophageal reflux. 7. Significant balance problems. 8. Anxiety and depressive disorder. PLAN: 1. Continue Aricept. 2. Continue Zoloft. 3. Continue to follow the patient's blood pressure for orthostasis. 4. Continue physical therapy and occupational therapy. 5. Continue pain management. 6. Continue DVT and stress ulcer prophylaxis. 7. Continue decubitus precautions. 8. Continue balance exercise. 9. Continue to encourage the patient to eat.
[2016-12-10] MEDS: Acetaminophen 325 MG TAB PO PRN (21:14)
[2016-12-10] MEDS: Donepezil HCl 10 MG TAB PO SCH (21:14)
[2016-12-11] MEDS: Calcium Carbonate 500 MG TAB PO SCH (09:16)
[2016-12-11] MEDS: Aspirin 81 mg Enteric Coated Tablet PO SCH (09:17)
[2016-12-11] MEDS: Polyethylene Glycol 3350 17 GM Packet PO PRN (12:31)
--- NOTE | 2016-12-11 20:30 | PRG ---
DATE OF SERVICE: 12/11/2016 DATE OF ADMISSION: 11/25/2016 HISTORY OF PRESENT ILLNESS: Ms. Hamilton is a very pleasant 76-year-old white female, who fell at [facility]. She had resultant minimally displaced fracture of the left anterior pubic symphysis. She was a dmitted to the hospital and then eventually transferred to swing bed for physical therapy, occupatio nal therapy, and balance therapy and pain control. The patient continues to have significant bowel problems. We are working diligently to make that be tter. She unfortunately is unable to go home, so she will be transferred to [facility] tomorrow for continued PT, OT, and balance therapy. She will also be encouraged to eat and continue with therapy there. VITAL SIGNS: Today revealed blood pressure 146/66, pulse 67-72, respirations 16-20, O2 sat 93% on r oom air, temperature max is 97.9. PHYSICAL EXAMINATION: GENERAL: This is a very thin, weak white female in no apparent distress at this time. HEENT: Reveals normocephalic, nontraumatic cranium. Pupils are equally round and reactive. Extrao cular movements intact. Nose and throat are slightly dry. NECK: Supple, without masses, nodes or bruits. CHEST: Clear to auscultation. No rales, rhonchi or wheezes are heard. CARDIOVASCULAR: Reveals a regular rate and rhythm without murmurs, gallops or rubs. ABDOMEN: Scaphoid, soft, nontender, without organomegaly, normal bowel sounds are noted. No reboun d or guarding is noted. : Deferred. EXTREMITIES: Reveals generalized weakness, poor balance, especially balance, falling backwards. IMPRESSION: 1. Acute nondisplaced left anterior pubic symphysis fracture with pain. 2. Hypertension. 3. Palpitation. 4. Osteoporosis. 5. Generalized weakness. 6. Gastroesophageal reflux. 7. Significant bowel problems. 8. Anxiety depressive disorder. PLAN: 1. Continue Aricept. 2. Continue Zoloft. 3. Continue to follow up patient's blood pressure for orthostasis. 4. Continue physical therapy and occupational therapy. 5. Continue pain management. 6. Continue deep venous thrombosis and stress ulcer prophylaxis. 7. Continue decubitus precautions. 8. Continue balance exercise. 9. Continue to encourage the patient to eat. 10. The patient will be discharged after physical therapy, after lunch tomorrow to [facility] for continued physical therapy and occupational therapy.
[2016-12-11] MEDS: Donepezil HCl 10 MG TAB PO SCH (20:56)
[2016-12-11] MEDS: Acetaminophen 325 MG TAB PO PRN (20:56)
[2016-12-12] MEDS: Calcium Carbonate 500 MG TAB PO SCH (09:07)
[2016-12-12] MEDS: Aspirin 81 mg Enteric Coated Tablet PO SCH (09:07)
[2016-12-12] MEDS: Polyethylene Glycol 3350 17 GM Packet PO PRN (09:08)
[2016-12-12 11:47] VITALS: BP 142/68; TEMP 98
--- NOTE | 2016-12-13 00:37 | DIS ---
DATE OF ADMISSION: 11/25/2016 DATE OF DISCHARGE: 12/12/2016 HISTORY: Ms. Hamilton is a very pleasant 76-year-old white female that fell the afternoon of , approximately 6:00 in the afternoon. She got up and had very little pain, but when she sat jesús n she started having more pain and apparently her pain increased. She was brought to the emergency room and found to have acute minimally displaced fracture of left anterior pubis. She was admitted to the hospital for physical therapy, occupational therapy, and pain management. Initially, she imp roved, but not to the point of being able to go home. She was transferred to swing bed for continue d physical therapy, occupational therapy, balance therapy. She has been continued with that is actually much improved, but still not strong enough to go home. It was felt that she needs further therapy, but was unable to get that here at [facility]. Therefore, she was transferred to residential over at [facility]. PAST MEDICAL HISTORY: Positive for hypertension, gastroesophageal reflux, osteoporosis, allergic de rmatitis, macular degeneration, anxiety, urgent urinary frequency, diverticulosis, depression, palpi tations, anxiety, depressive disorder and generalized weakness. DISCHARGE MEDICATIONS: Will include the followin. Tylenol 650 mg q.4 h. p.r.n. 2. Aspirin 81 mg a day. 3. Dulcolax 10 mg p.r.n. constipation. 4. Tums p.r.n. heartburn or indigestion. 5. Aricept 10 mg at bedtime. 6. Robitussin DM p.r.n. cough. 7. Anusol-HC p.r.n. hemorrhoid problems. 8. Milk of magnesia p.r.n. constipation. 9. Metoprolol 12.5 mg daily. 10. Zofran 4 mg p.r.n. 11. Protonix 40 mg daily. 12. MiraLax 17 g daily. 13. Avista 60 mg daily. 14. Zoloft 100 mg daily. PHYSICAL EXAMINATION: GENERAL: This is a well-developed, well-nourished, very thin white female in no apparent distress a t this time. HEENT: Reveals normocephalic, nontraumatic cranium. Pupils round and reactive. Extraocular moveme nts intact. Nose and throat slightly dry. NECK: Supple, without masses, nodes or bruits. CHEST: Clear to auscultation. No rales, rhonchi or wheezes are heard. Breath sounds are distant. HEART: Reveals a regular rate and rhythm without murmurs, gallops or rubs. No palpitations were he yumi or felt this morning. ABDOMEN: Exam is soft, nontender, scaphoid without organomegaly. Normal bowel sounds are noted. N o rebound or guarding is noted. GENITOURINARY: Deferred. EXTREMITIES: Revealed no clubbing, cyanosis or edema. The patient has generalized weakness, but is able to walk and has some scissoring when she walks and she has extreme weakness. She also has dif ficulty with balance, tended to fall backwards, but the patient is much improved prior to when she c nikia to the hospital. ASSESSMENT: 1. Acute nondisplaced left anterior pubic symphysis fracture with pain. 2. Hypertension. 3. Palpitations. 4. Osteoporosis. 5. Generalized weakness. 6. Gastroesophageal reflux. 7. Significant balance problems. 8. Anxiety depressive disorder. PLAN: 1. Continue Aricept at 10 mg at bedtime. 2. Continue Zoloft 100 mg daily. 3. Follow the patient's blood pressure for orthostasis. 4. Continue physical therapy and occupational therapy. 5. Continue pain management. 6. Continue DVT and stress ulcer prophylaxis. 7. Continue decubitus precautions. 8. Continue balance exercise. 9. Encourage the patient to eat. 10. Patient was discharged and transferred to [facility] for physical therapy, occupational thera py, and continued dialysis therapy. I spent more than 40 minutes discharging this patient.
== END 2016-12-12 12:50 | DRG 560 ==
LOC: NAV ACUTE 11:19
PROVIDERS: ADMIT Family Medicine; ATTEND Family Medicine
DX: S32.502D Unspecified fracture of left pubis, subsequent encounter for fracture with routine healing (principal); K57.92 Diverticulitis of intestine, part unspecified, without perforation or abscess without bleeding; I10 Essential (primary) hypertension; W18.30XD Fall on same level, unspecified, subsequent encounter; M81.0 Age-related osteoporosis without current pathological fracture; K21.9 Gastro-esophageal reflux disease without esophagitis; R53.1 Weakness; F32.9 Major depressive disorder, single episode, unspecified; F41.9 Anxiety disorder, unspecified; H35.30 Unspecified macular degeneration; R39.15 Urgency of urination; R00.2 Palpitations; R26.89 Other abnormalities of gait and mobility; L23.9 Allergic contact dermatitis, unspecified cause
CPT/HCPCS: 80053; 83880; 84443; 85025; G8978-GP-CK; G8979-GP-CJ

== ENCOUNTER 2017-01-16 08:42 | Outpatient (CLI) | payer MEDICARE, OTHER ==
[2017-01-16 12:20] LABS: #Basophils 0.1 thou/uL (0.0-0.2); #Eosinphils 0.1 thou/uL (0.0-0.7); #Lymphocytes 2.5 thou/uL (1.20-3.40); #Monocytes 0.6 thou/uL (0.11-0.59); #Neutrophils 4.5 thou/uL (1.40-6.50); %Basophils 1.3 % (0.0-1.0); %Eosinophils 1.6 % (0.0-10.0); %Lymphocytes 31.9 % (21.0-51.0); %Monocytes 7.5 % (0.0-10.0); Hematocrit 36.9 % (36.0-47.0); Mean Platelet Volume 9.1 fL (7.4-10.4); Red Blood Cell (RBC) Count 4.07 mill/uL (4.20-5.40); White Blood Cell (WBC) Count 7.8 thou/uL (4.8-10.8)
[2017-01-16 12:34] LABS: ALT (SGPT) 20 U/L (0-55); AST (SGOT) 25 U/L (5-34); Alkaline Phosphatase 159 U/L (40-150); Anion Gap 15 mmol/L (10-20); BUN (Urea Nitrogen) 17 mg/dL (9.8-20.1); Bilirubin, Direct 0.2 mg/dL (0.1-0.3); Bilirubin, Total 0.5 mg/dL (0.2-1.2); Calc. Creatinine Clearance 0 mL/min (70-130); Calcium 9.1 mg/dL (7.8-10.44); Carbon Dioxide 27 mmol/L (23-31); Chloride 103 mmol/L (98-107); Estimated GFR-MDRD 64; Globulin 2.8 g/dL (2.4-3.5); LDL Cholesterol, Calculated 93 mg/dL; Protein, Total 6.5 g/dL (5.8-8.1)
[2017-01-16 12:51] LABS: Hemoglobin A1c 5.1 % (4.0-6.0)
== END 2017-01-16 08:43 ==
LOC: NAVSJIPCSP 08:42
PROVIDERS: ATTEND Student in an Organized Health Care Education/Training Program
DX: E55.9 Vitamin D deficiency, unspecified (principal); E53.1 Pyridoxine deficiency; E53.8 Deficiency of other specified B group vitamins; E51.9 Thiamine deficiency, unspecified; R41.3 Other amnesia
CPT/HCPCS: 36415; 80053; 80061; 82248; 82306; 82607; 82746; 83036; 84207; 84425; 84443; 85025; 86038; 86592

== ENCOUNTER 2017-06-11 05:46 | Emergency (ER) | payer MEDICARE, OTHER ==
[2017-06-11] MEDS ORDERED: Acetaminophen 500 MG TAB ONE (06:39)
[2017-06-11] MEDS ORDERED: Adacel (T-DAP) 0.5 ML VIAL ONE (06:47)
--- NOTE | 2017-06-11 07:54 | CT ---
PRELIMINARY REPORT/[facility]/EMERGENCY AFTER HOURS PROCEDURE: EXAM: CT Head Without Intravenous Contrast CLINICAL HISTORY: 77 years old, female; Injury or trauma; Fall; Work related; Initial encounter; Abrasion and blunt tr auma (contusions or hematomas); Without loss of consciousness; Head, generalized; Injury date: 7; Injury details: Pt fell from standing when getting out of bed; Contusion to left occipital, abras ion to left occipital, abrasion; Moderate side hematoma; No skull depression; No loc; Patient HX: Pa st medical history includes musculoskeletal disorder, osteoporosis. Parkinson reviewed with spouse TECHNIQUE: Axial computed tomography images of the head/brain without intravenous contrast. [facility] use one or more dose reduction techniques, viz.: automated exposure control; ma/kV adjust ment per patient size (including targeted exams where dose is matched to indication; i.e. head); or iterative reconstruction technique. Coronal and sagittal reformatted images were created and reviewe d. COMPARISON: No relevant prior studies available. FINDINGS: Brain: Mild volume loss No hemorrhage. No significant white matter disease. No edema. Ventricles: Unremarkable. No ventriculomegaly. Bones/joints: Unremarkable. No acute fracture. Soft tissues: Left parietal scalp hematoma Sinuses: Unremarkable as visualized. No acute sinusitis. Mastoid air cells: Unremarkable as visualized. No mastoid effusion. IMPRESSION: No intracranial hemorrhage.Please see discussion above. Thank you for allowing us to participate in the care of your patient. Dictated and Authenticated by: Dawson Ferro MD 06/11/2017 7:21 AM Central Time ([place] \T\ [place]) FINAL REPORT CT HEAD NONTCONTRAST PERFORMED ON EMERGENCY BASIS: Date: 06/11/17 Time: 0627 hours HISTORY: Fall. Head injury. FINDINGS: Findings agree with the preliminary report by Alexy. Large area of scalp swelling overlies the left p arietal calvarium. No acute intracranial abnormalities are demonstrated. POS: NANDA
--- NOTE | 2017-06-11 07:57 | CT ---
PRELIMINARY REPORT/[facility]/EMERGENCY AFTER HOURS PROCEDURE: EXAM: CT Cervical Spine Without Intravenous Contrast CLINICAL HISTORY: 77 years old, female; Injury or trauma; Fall; Initial encounter; Blunt trauma; Injury date: 06/11/17; Injury details: Pt fell from standing getting out of bed this am, no loc; Patient HX: Past medical h istory includes musculoskeletal disorder, osteoporosis \T\ early parkinson dx. TECHNIQUE: Axial computed tomography images of the cervical spine without intravenous contrast. All CT scans at this facility use one or more dose reduction techniques, viz.: automated exposure control; ma/kV ad justment per patient size (including targeted exams where dose is matched to indication; i.e. head); or iterative reconstruction technique. Coronal and sagittal reformatted images were created and rev iewed. COMPARISON: No relevant prior studies available. FINDINGS: Vertebrae: Loss of vertebral body height, presumed degenerative No acute fracture. Discs/spinal canal/neural foramina: No acute findings. No spinal canal stenosis. Soft tissues: Unremarkable. Lung apices: Unremarkable as visualized. IMPRESSION: No definite acute cervical fracture observed Thank you for allowing us to participate in the care of your patient. Dictated and Authenticated by: Dawson Ferro MD 06/11/2017 7:22 AM Central Time ([place] \T\ [place]) FINAL REPORT CT CERVICAL SPINE NONCONTRAST PERFORMED ON AN EMERGENCY BASIS: Date: 06/11/17 Time: 0631 hours HISTORY: Fall. Neck injury. FINDINGS: Findings agree with the preliminary report by Alexy. Degenerative changes of the cervical spine are a pparent. No acute osseous abnormalities are demonstrated. POS: NANDA
== END 2017-06-11 07:53 | disposition home or self-care (01) ==
LOC: NAV ERS 05:46
DX: S01.01XA Laceration without foreign body of scalp, initial encounter (principal); I25.10 Atherosclerotic heart disease of native coronary artery without angina pectoris; K21.9 Gastro-esophageal reflux disease without esophagitis; M81.0 Age-related osteoporosis without current pathological fracture; F41.9 Anxiety disorder, unspecified; Z87.891 Personal history of nicotine dependence; Z79.899 Other long term (current) drug therapy; W06.XXXA Fall from bed, initial encounter
CPT/HCPCS: 12001; 70450; 72125; 90471; 90715

== ENCOUNTER 2017-06-18 09:03 | Emergency (ER) | payer MEDICARE, OTHER | END 2017-06-18 09:35 | disposition home or self-care (01) | LOC: NAV ERS 09:03 | DX: S01.01XD Laceration without foreign body of scalp, subsequent encounter (principal); I25.10 Atherosclerotic heart disease of native coronary artery without angina pectoris; K21.9 Gastro-esophageal reflux disease without esophagitis; I49.9 Cardiac arrhythmia, unspecified; F41.9 Anxiety disorder, unspecified; Z87.891 Personal history of nicotine dependence; Z79.899 Other long term (current) drug therapy; Z79.82 Long term (current) use of aspirin ==

== ENCOUNTER 2017-06-24 09:49 | Outpatient (CLI) | payer MEDICARE, OTHER ==
[2017-06-24 17:45] LABS: #Basophils 0.1 thou/uL (0.0-0.2); #Eosinphils 0.2 thou/uL (0.0-0.7); #Lymphocytes 4.2 thou/uL (1.20-3.40); #Monocytes 0.6 thou/uL (0.11-0.59); %Basophils 1.3 % (0.0-1.0); %Eosinophils 1.5 % (0.0-10.0); %Lymphocytes 37.7 % (21.0-51.0); %Monocytes 5.8 % (0.0-10.0); %Neutrophils 53.7 % (42.0-75.0); Hemoglobin 12.1 g/dL (12.0-16.0); Mean Corpuscular HGB CONC 32.1 g/dL (32.0-36.0); Mean Corpuscular Hemoglobin 29.7 pg (27.0-31.0); Mean Corpuscular Volume 92.3 fl (81.0-99.0); Mean Platelet Volume 7.6 fL (7.4-10.4); Platelet Count 175 thou/uL (130-400); RBC Distribution Width 13.6 % (11.5-14.5); Red Blood Cell (RBC) Count 4.08 mill/uL (4.20-5.40); White Blood Cell (WBC) Count 11.1 thou/uL (4.8-10.8)
[2017-06-24 19:09] LABS: Bilirubin Negative (Negative); Blood, Urine Trace (Negative); Clarity Clear (Clear); Glucose, Urine (Dipstick) Negative (Negative); Leukocyte Negative (Negative); Nitrite Negative (Negative); Protein, Urine (Dipstick) Negative (Neg-Trace); Specific Gravity, Urine 1.015 (1.005-1.030); Urobilinogen 0.2 mg/dL (0.2-1.0); pH, Urine 7.5 (5.0-9.0)
[2017-06-24 19:12] LABS: RBC/HPF 0-3 HPF (0-3); Squamous Epithelial 0-3 HPF (0-3)
[2017-06-24 19:25] LABS: ALT (SGPT) 22 U/L (8-55); AST (SGOT) 24 U/L (5-34); Albumin 3.8 g/dL (3.4-4.8); Alkaline Phosphatase 108 U/L (40-150); Anion Gap 14 mmol/L (10-20); BUN (Urea Nitrogen) 16 mg/dL (9.8-20.1); Bilirubin, Direct 0.2 mg/dL (0.1-0.3); Bilirubin, Total 0.6 mg/dL (0.2-1.2); Calc. Creatinine Clearance 0 mL/min (70-130); Carbon Dioxide 27 mmol/L (23-31); Cardiac Risk 2.4 (Less than 4.5); Chloride 106 mmol/L (98-107); Cholesterol 217 mg/dl (< 200 Desired); Estimated GFR-MDRD 67; Glucose 85 mg/dL (83-110); HDL Cholesterol 89 mg/dL (>60 Neg Risk); LDL Cholesterol, Calculated 111 mg/dL; Protein, Total 6.5 g/dL (6.0-8.3); Sodium 143 mmol/L (136-145); Triglycerides 86 mg/dL (Less than 150)
[2017-06-24 20:20] LABS: Hemoglobin A1c 5.2 % (4.0-6.0)
== END 2017-06-24 09:50 | disposition home or self-care (01) ==
LOC: NAVSJIPCSP 09:49
PROVIDERS: ATTEND Family Medicine
DX: D51.9 Vitamin B12 deficiency anemia, unspecified (principal); I10 Essential (primary) hypertension; R00.2 Palpitations; R53.83 Other fatigue; Z79.899 Other long term (current) drug therapy
CPT/HCPCS: 36415; 80048; 80061; 80076; 81003; 81015; 82607; 83036; 84443; 85025

== ENCOUNTER 2018-01-19 09:46 | Outpatient (CLI) | payer MEDICARE, OTHER ==
[2018-01-19 09:56] LABS: Bilirubin Negative (Negative); Blood, Urine Negative (Negative); Clarity Cloudy (Clear); Glucose, Urine (Dipstick) Negative (Negative); Leukocyte Negative (Negative); Nitrite Negative (Negative); Protein, Urine (Dipstick) Negative (Neg-Trace); Specific Gravity, Urine 1.015 (1.005-1.030); Urobilinogen 0.2 mg/dL (0.2-1.0)
== END 2018-01-19 09:47 | disposition home or self-care (01) ==
LOC: NAVSJIPCSP 09:46
PROVIDERS: ATTEND Family Medicine
DX: R35.0 Frequency of micturition (principal); R32 Unspecified urinary incontinence
CPT/HCPCS: 81003